=== PATIENT | male | born 1940 | race Caucasian/White ===

== ENCOUNTER → 2017-08-24 10:07 | Outpatient (CLI) | payer MEDICARE, SELFPAY ==
[2017-08-24 11:06] LABS: PSA,Total - Annual Screen 0.94 ng/mL (0.00-4.00)
== END ==
PROVIDERS: Family Provider Family Medicine; PCP Family Medicine; Visit Provider Nurse Practitioner Adult Health
DX: Z12.5 Encounter for screening for malignant neoplasm of prostate (principal); N40.0 Benign prostatic hyperplasia without lower urinary tract symptoms
CPT/HCPCS: 36415; 84153; G0103

== ENCOUNTER → 2017-10-02 09:13 | Outpatient (CLI) | payer MEDICARE, SELFPAY ==
[2017-10-02 12:28] LABS: Cholesterol 174 mg/dL (200); Glucose 113 mg/dL (74-106); High Density Lipoprotein 35 mg/dL; Triglycerides 96 mg/dL; Very Low Density Lipoprotein 19 mg/dL (5-40)
[2017-10-02 12:37] LABS: Hemoglobin A1c 6.9 % (4.2-6.3)
[2017-10-02 17:55] LABS: Microalbumin,Random Urine 8.8 mg/L (NO RANGE EST.); Microalbumin:Creatinine Ratio 5.6 mg/g CRE (<30 mg/g CRE)
== END ==
PROVIDERS: Family Provider Family Medicine; PCP Family Medicine; Visit Provider Family Medicine
DX: E11.9 Type 2 diabetes mellitus without complications (principal); I10 Essential (primary) hypertension
CPT/HCPCS: 36415; 80061; 82043; 82570; 82947; 83036

== ENCOUNTER → 2017-12-17 12:23 | Outpatient (CLI) | payer MEDICARE, SELFPAY | PROVIDERS: Family Provider Family Medicine; PCP Family Medicine; Visit Provider Physician Assistant Surgical | DX: J02.9 Acute pharyngitis, unspecified (principal) | CPT/HCPCS: 87081 ==

== ENCOUNTER → 2018-07-23 11:34 | Outpatient (CLI) | payer MEDICARE, SELFPAY ==
--- NOTE | 2018-07-23 11:38 | US_ITS ---
STUDY: RENAL ULTRASOUND - COMPLETE REASON FOR EXAM: Male, 78 years old. Right flank pain for 2 months TECHNIQUE: Ultrasound evaluation of the kidneys was performed with real-time and static altamirano-scale imaging. COMPARISON: 07/30/2016 FINDINGS: RIGHT KIDNEY: Normal location of the right kidney, which is normal in size. The right kidney measures 12.3 x 4.3 x 6.8 cm. There is a normal cortex of the right kidney. The renal cortex measures 1.3 cm. There is no right renal mass or cyst. Echogenic shadowing focus of the right kidney measures 4 mm, not evident on the prior study. There is no right hydronephrosis. DISTAL RIGHT URETER: There is non-visualization of the distal right ureter. There is no demonstrated right ureterovesical junction calculus. There is a visualized right ureteral jet. LEFT KIDNEY: Normal location of the left kidney, which is normal in size. The left kidney measures 11.5 x 5.5 x 6.6 cm. There is a normal cortex of the left kidney. The renal cortex measures 1.3 cm. There is no left renal mass or cyst. 3.3 mm echogenic focus with inferior shadowing was not previously identified. There is no left hydronephrosis. DISTAL LEFT URETER: There is non-visualization of the distal left ureter. There is no demonstrated left ureterovesical junction calculus. There is a visualized left ureteral jet. BLADDER: The distended urinary bladder has a volume of 220 ml. The empty urinary bladder has a volume of 33 ml. Focal intermediate echogenicity focus along the inferior urinary bladder wall is felt to be from prostatic compression rather than a urinary bladder wall mass. Urinary bladder diverticulum is identified measuring approximately 2.5 cm. There are no demonstrated bladder calculi. US/Kidney and Bladder IMPRESSION: 1. No hydronephrosis or renal mass 2. Mild prostatic impression of the inferior urinary bladder. 3. Small urinary bladder diverticulum. 4. Nonobstructing bilateral renal calculi (3-4 mm). Electronically Signed: Donovan Smart MD at 22:37 EST , Service support ,
== END ==
PROVIDERS: Family Provider Family Medicine; PCP Family Medicine; Referring Provider Family Medicine; Visit Provider Family Medicine
DX: N20.0 Calculus of kidney (principal); R10.31 Right lower quadrant pain
CPT/HCPCS: 76770

== ENCOUNTER → 2018-10-19 10:28 | Outpatient (CLI) | payer MEDICARE, SELFPAY ==
[2018-10-19 12:34] LABS: Absolute Lymphocyte Count 1.61 X10^3/ul (0.83-4.51); Absolute Neutrophil Count 2.9 X10^3/uL (2.0-7.7); Basophil# 0.01 X10^3/uL; Basophil% 0.2 % (0-1); Eosinophil# 0.11 X10^3/uL; Eosinophils% 2.2 % (0-5); Hematocrit 48.1 % (40-54); Hemoglobin 16.4 g/dl (13.0-16.5); Lymphocyte # 1.61 X10^3/ul (4.0); Lymphocyte % 32.2 % (19-41); Mean Corp Hgb Conc 34.1 g/gl (32-36); Mean Corpuscular Hgb 27.9 pg (27.0-32.0); Mean Corpuscular Volume 81.8 fL (80-94); Mean Platelet Vol. 10.6 fl (6.2-12.0); Monocyte# 0.38 X10^3/uL; Monocyte% 7.6 % (0-10); Neutrophil # 2.88 X10^3/uL (2.7-7.7); Neutrophil % 57.6 % (47-70); Platelet Count 208 K/mm3 (150-450); RBC Distribution Width CV 13.7 % (11.6-14.6); Red Blood Count 5.88 M/mm3 (4.6-6.2)
[2018-10-19 12:42] LABS: POSITIVE COUNT NO; POSITIVE DIFFERENTIAL NO; POSITIVE MORPHOLOGY NO
[2018-10-19 13:18] LABS: ALB/GLOB Ratio 1.1 RATIO (0.9-2.4); AST(SGOT) 21 U/L (15-37); Alanine Aminotransfer ALT/SGPT 31 U/L (16-61); Alkaline Phosphatase 63 U/L (45-117); Anion Gap 4 (5-15); BUN 22 mg/dL (7-18); Chloride 108 mmol/L (98-107); EST Glomerular Filtration Rate 77 mL/min (>60); Est Glom Filt Rate - Afr Amer 93 mL/min (>60); Globulin 3.5 g/dL (2.2-4.2); Glucose 115 mg/dL (74-106); Potassium 3.9 mmol/L (3.5-5.1); Protein, Total 7.5 g/dL (6.4-8.2); Sodium Level 139 mmol/L (136-145); T4 Free Direct 0.94 ng/dL (0.76-1.46); Thyroid Stim Hormone (TSH) 1.79 uIU/mL (0.358-3.74)
== END ==
PROVIDERS: Family Provider Family Medicine; PCP Family Medicine; Visit Provider Nurse Practitioner Adult Health
DX: E29.1 Testicular hypofunction (principal); E11.9 Type 2 diabetes mellitus without complications; I10 Essential (primary) hypertension
CPT/HCPCS: 36415; 80053; 84403; 84439; 84443; 85025

== ENCOUNTER → 2018-11-01 06:27 | Outpatient (CLI) | payer MEDICARE, SELFPAY ==
--- NOTE | 2018-11-01 06:31 | CT_ITS ---
STUDY: CT ABDOMEN AND PELVIS WITH CONTRAST REASON FOR EXAM: Male, 78 years old. Right-sided abdominal pain, right lower quadrant and back times several months. History of hypertension. RADIATION DOSAGE (If Supplied By Facility): CTDIvol = ( 12.49 ) mGy, DLP = ( 1249.05 ) mGycm TECHNIQUE: Transaxial 3.75 mm images were obtained from the dome of the diaphragm to the symphysis pubis with oral contrast. 100mL IV/Oral Isovue 300 was administered. Sagittal and coronal images were reconstructed. Individualized dose optimization techniques were used for this CT. COMPARISON: Renal ultrasound 07/23/2018. 07/30/2016. FINDINGS: Compression of dependent parenchyma. Right greater than left lower lobe alveolar hyperattenuation consistent with previous contrast aspiration, there are platelike atelectatic changes and possible scarring in the left lower lobe and lingula. There is coronary artery calcification. Normal liver. There are multiple large gallstones without gallbladder wall thickening. There is nondilated intra and extrahepatic biliary ductal system. Normal spleen. Normal pancreas. Normal bilateral adrenal glands. Bilateral perirenal stranding and cortical thinning. Punctate nonobstructing right upper renal pole calculi. There are numerous nonobstructing left renal calculi, in the upper pole measuring 0.6 and 0.2 cm, and the mid kidney 0.4 and 0.2 cm. Normal visualized stomach. Normal small intestine. Moderate amount of retained fecal material. There are multiple scattered colonic diverticula consistent with diverticulosis, moderate amount of diverticula in the descending and sigmoid colon. No pericolonic fat inflammation detected.. The appendix is visualized and appears normal. There is diffuse atherosclerotic calcification of the abdominal aorta and pelvic arteries, without a demonstrated aneurysm. Normal inferior vena cava. Normal retroperitoneum. Normal urinary bladder. Central defect within the prostate likely previous in the surgical intervention. There is a left-sided and umbilical inguinal hernia containing adipose tissue. There are diffuse degenerative changes of the visualized spine, bilateral hip and sacroiliac joints, lower lumbar facet joints. CT/Abdomen/Pelvis WITH Contrast IMPRESSION: Significant colonic diverticulosis most pronounced along the sigmoid and descending colon without active inflammation detected. There is moderate amount of fecal material. Bilateral nonobstructing renal calculi left greater than right. Large numerous gallbladder calculi without inflammation or obstruction. Atherosclerosis, coronary artery disease, degenerative changes, fat-containing umbilical and left inguinal hernia, postsurgical changes of the prostate, aspiration changes in the lung bases with presumed scarring felt to be nonacute findings. Electronically Signed: Surekha Pemberton MD at 7:26 EDT , Service support ,
== END ==
PROVIDERS: Family Provider Family Medicine; PCP Family Medicine; Referring Provider Family Medicine; Visit Provider Family Medicine
DX: R10.31 Right lower quadrant pain (principal)
CPT/HCPCS: 74177; Q9967; A4216

== ENCOUNTER → 2018-11-16 10:01 | Outpatient (CLI) | payer MEDICARE, SELFPAY ==
[2017-12-16 09:29] VITALS: BMI 28.8
== END ==
PROVIDERS: Family Provider Family Medicine; PCP Family Medicine; Referring Provider Urology; Visit Provider Urology
DX: Z12.5 Encounter for screening for malignant neoplasm of prostate (principal)
CPT/HCPCS: 36415; 84153; G0103

== ENCOUNTER → 2019-12-29 14:38 | Outpatient (CLI) | payer MEDICARE, SELFPAY ==
[2019-12-29 15:49] LABS: PSA,Total- Diagnostic 1.15 ng/mL (0.0-4.0)
== END ==
PROVIDERS: PCP Family Medicine; Referring Provider Urology; Visit Provider Urology
DX: E29.1 Testicular hypofunction (principal); N40.1 Benign prostatic hyperplasia with lower urinary tract symptoms
CPT/HCPCS: 36415; 84153; 84403

== ENCOUNTER 2020-08-21 09:24 | Outpatient (RCR) | payer MEDICARE, SELFPAY ==
[2017-12-16 09:29] VITALS: BMI 28.8
[2020-08-21] MEDS: COVID-19 VACC, MRNA(PFIZER)/PF 30 MCG/0.3 ML SYRINGE IM (07:53)
[2020-09-11] MEDS: COVID-19 VACC, MRNA(PFIZER)/PF 30 MCG/0.3 ML SYRINGE IM (07:38)
== END 2020-11-20 23:59 ==
LOC: IMMUN 09:24
PROVIDERS: PCP Family Medicine; Visit Provider Family Medicine
DX: Z23 Encounter for immunization (principal)
CPT/HCPCS: 0001A; 0002A; 91300

== ENCOUNTER → 2021-02-19 09:08 | Outpatient (CLI) | payer MEDICARE, SELFPAY ==
[2021-02-19 10:11] LABS: PSA,Total- Diagnostic 1.08 ng/mL (0.0-4.0)
== END ==
PROVIDERS: PCP Family Medicine; Referring Provider Urology; Visit Provider Urology
DX: N40.1 Benign prostatic hyperplasia with lower urinary tract symptoms (principal)
CPT/HCPCS: 36415; 84153; 84403

== ENCOUNTER → 2021-10-18 | Outpatient (CLI) | payer MEDICARE, SELFPAY ==
[2021-10-23 11:09] LABS: Testosterone, Free 10.61 ng/dL (5.00-21.00)
[2021-10-23 16:52] LABS: Testosterone, % Free 3.61 % (1.50-4.20); Testosterone, Total 294 ng/dL (264-916)
== END | disposition home or self-care (01) ==
LOC: LAB 08:26
PROVIDERS: PCP Family Medicine; Referring Provider Urology; Visit Provider Urology
DX: E29.1 Testicular hypofunction (principal)
CPT/HCPCS: 36415; 84402; 84403

== ENCOUNTER 2021-10-21 09:15 | Emergency (ER) | payer MEDICARE, SELFPAY ==
[2021-10-21 09:15] VITALS: BP 180/97; PULSE 68; RESP 14; TEMP 36.8; O2SAT 99; BMI 27.6
--- NOTE | 2021-10-21 09:36 | EX.ED.DYSGE1 ---
HPI History of Present Illness Chief Complaint: Mental Health Narrative Narrative: Patient presents with feeling anxious, he has not slept more than 1 or 2 hours a night for the past 2 to 3 weeks. He feels shaky, he feels like there is something seriously wrong. He has no headache. He has no neurological symptoms no fevers or chills. This happened a few years ago where he did not sleep for about 15 days and finally saw sleep specialist. He does not know what medications he was placed on. He is denying fevers chills. He has no chest pain or palpitations he has no back pain. He has no abdominal pain. He does not have any delusions or hallucinations, no suicidal ideations. [facility] Medical History (Updated 10/21/21 @ 11:[address] Christopher Pereira MD) Diverticulitis Enlarged prostate Gall stones Low testosterone Sleep apnea Home Medications testosterone 20.25 mg TD DAILY 08/27/16 [History Last Taken Unknown] venlafaxine 0.5 tab PO DAILY 08/27/16 [History Last Taken Unknown] azithromycin 250 mg tablet See Rx Instructions PO .COMPLEX #6 tab 12/16/17 [Rx Last Taken Unknown] ibuprofen 200 mg capsule 200 mg PO TID-QID PRN 12/16/17 [History Last Taken Unknown] hydroxyzine pamoate [Vistaril] 50 mg PO BID #30 cap 10/21/21 [Rx Last Taken Unknown] phenobarbital 100 mg PO BID PRN #10 tab 10/21/21 [Rx Last Taken Unknown] Allergy/AdvReac Type Severity Reaction Status Date / Time fluoxetine [From Prozac] Allergy Unknown Verified 10/21/21 09:18 paroxetine [From Paxil] Allergy Unknown Verified 10/21/21 09:18 alprazolam [From Xanax] AdvReac Other Verified 10/21/21 09:19 ciprofloxacin [From Cipro] AdvReac Unknown Verified 10/21/21 09:18 citalopram AdvReac Unknown Verified 10/21/21 09:18 levofloxacin [From Levaquin] AdvReac Unknown Verified 10/21/21 09:18 Surgical History Hx of transurethral resection of prostate Social History Smoking Status: Never smoker ROS ROS ED ROS Narrative Past medical history: Reviewed, significant for anxiety otherwise he does not take blood pressure cholesterol medications or any other medications other than Effexor and Klonopin Medications: See above Social history: Lives with his he tells me he has no other stressors that he knows of Review of systems: All systems negative except as indicated General: No fever. Shakiness and decreased sleep as in HPI Eyes: No visual changes ENT: No upper airway congestion, normal voice Neck: No neck pain Cardiovascular: No chest pain Respiratory: No shortness of breath or cough Gastrointestinal: No abdominal pain, nausea vomiting or diarrhea Genitourinary: No dysuria Musculoskeletal: Denies myalgias no difficulty with ambulation Skin: No rash Neurological: No memory loss, confusion or any focal weakness Psych: As in HPI Hematologic: No easy bleeding or easy bruising EXAM Physical Exam Narrative Exam Narrative: Physical exam General: Patient does not appear ill. He does appear somewhat uncomfortable. Head: Normocephalic, Atraumatic Eyes: Conjunctiva not pale ENT: Moist mucous membranes Neck: Supple, Nontender, No lymphadenopathy Cardiovascular: Regular rate, Regular rhythm Respiratory: No distress, CTA bilaterally Abdomen: Soft, Nontender, Nondistended Back: Nontender, Normal Inspection. Negative for: CVA tenderness Extremities: Nontender, No edema Skin: Normal color, No rash Neurological: Normal Strength, Normal Sensation. He is lucid and coherent, alert and oriented. Psychological: Somewhat anxious, he does have a stutter, otherwise he is lucid coherent and answers questions appropriately Const Vital Signs: 10/21/21 09:15 10/21/21 10:29 Temperature 98.3 F Temperature Source Temporal Pulse Rate 68 Respiratory Rate 14 18 Blood Pressure 180/97 H Blood Pressure Mean 124 Pulse Ox 99 Oxygen Delivery Method Room Air MDM MDM MDM Narrative Medical decision making narrative: Patient was given Vistaril and phenobarbital. When checked by a nurse he was sleeping. I had a long discussion with the patient and the . I believe it is reasonable to discharge home and try outpatient treatment. I am willing to write him a few days of phenobarbital for sleep. He has tried trazodone he has tried benzos and they do not seem to be working. Otherwise fainting changes she is to return. Lab Data Labs: Laboratory Results - last 24 hr 10/21/21 10/21/21 09:45 09:45 WBC 7.0 RBC 5.59 Hgb 16.1 Hct 48.1 MCV 86.0 MCH 28.8 MCHC 33.5 RDW Std Deviation 39.7 RDW Coeff of Oly 12.7 Plt Count 215 MPV 9.9 Immature Gran % (Auto) 0.300 Neut % (Auto) 70.1 H Lymph % (Auto) 19.3 [place] % (Auto) 9.0 Eos % (Auto) 1.0 Baso % (Auto) 0.3 Absolute Neuts (auto) 4.9 Absolute Lymphs (auto) 1.35 Nucleated RBC % 0 Sodium 137 Potassium 4.0 Chloride 104 Carbon Dioxide 32.0 Anion Gap 1 L BUN 19 H Creatinine 1.11 Estim Creat Clear Calc 60.98 Est GFR (MDRD) Af Amer 82 Est GFR (MDRD) Non-Af 68 BUN/Creatinine Ratio 17.1 Glucose 154 H Calcium 9.0 Total Bilirubin 1.70 H AST 17 ALT 38 Alkaline Phosphatase 55 Total Protein 7.2 Albumin 3.5 Globulin 3.7 Albumin/Globulin Ratio 0.9 TSH 1.72 Discharge Plan Triage Chief Complaint: Mental Health ED Provider: Christopher Pereira Dx/Rx/DC Orders Clinical Impression: Acute insomnia, Anxiety Instructions: ED Insomnia Prescriptions: New phenobarbital 100 mg tablet 100 mg PO BID PRN (Reason: sleep) Qty: 10 RF: 0 hydroxyzine pamoate [Vistaril] 50 mg capsule 50 mg PO BID Qty: 30 RF: 0 No Action ibuprofen 200 mg capsule 200 mg PO TID-QID PRNRF: 0 azithromycin 250 mg tablet See Rx Instructions PO .COMPLEX Qty: 6 RF: 0 venlafaxine 37.5 MG tablet 0.5 tab PO DAILY RF: 0 testosterone 2.5 GM gel in packet 20.25 mg TD DAILY RF: 0 Primary Care Provider: Denver Baker Referrals: Denver Baker MD [Primary Care Provider] - 2 Days Disposition Disposition: Home, Self Care
[2021-10-21] MEDS: Phenobarbital 32.4 MG Tablet 97.2 MG PO (09:55)
[2021-10-21] MEDS: hydrOXYzine 50 MG/ML Vial IM (09:55)
[2021-10-21 09:58] LABS: Absolute Lymphocyte Count 1.35 X10^3/uL (0.83-4.51); Absolute Neutrophil Count 4.9 X10^3/uL (2.0-7.7); Basophil# 0.02 X10^3/uL; Basophil% 0.3 % (0-1); Eosinophil# 0.07 X10^3/uL; Hematocrit 48.1 % (40-54); Hemoglobin 16.1 g/dL (13.0-16.5); Lymphocyte # 1.35 X10^3/ul (0.83-4.51); Lymphocyte % 19.3 % (19-41); Mean Corp Hgb Conc 33.5 g/dL (32-36); Mean Corpuscular Hgb 28.8 pg (27.0-32.0); Mean Platelet Vol. 9.9 fl (6.2-12.0); Monocyte# 0.63 X10^3/uL; NRBC Flagged by Analyzer 0 % (0-5); Neutrophil # 4.92 X10^3/uL (2.7-7.7); Neutrophil % 70.1 % (47-70); Platelet Count 215 K/mm3 (150-450); RBC Distribution Width CV 12.7 % (11.6-14.6); RBC Distribution Width SD 39.7 fl (35.1-43.9); Red Blood Count 5.59 M/mm3 (4.6-6.2)
[2021-10-21 10:21] LABS: ALB/GLOB Ratio 0.9 RATIO (0.9-2.4); AST(SGOT) 17 U/L (15-37); Alanine Aminotransfer ALT/SGPT 38 U/L (16-61); Albumin, Serum 3.5 g/dL (3.2-5.0); Alkaline Phosphatase 55 U/L (45-117); Anion Gap 1 (5-15); BUN 19 mg/dL (7-18); BUN/Creat Ratio 17.1 RATIO (10-20); Chloride 104 mmol/L (98-107); Creatinine, Serum 1.11 mg/dL (0.70-1.30); EST Glomerular Filtration Rate 68 mL/min (>60); Est Glom Filt Rate - Afr Amer 82 mL/min (>60); Estimated Creatinine Clearance 60.98 ml/min; Globulin 3.7 g/dL (2.2-4.2); Glucose 154 mg/dL (74-106); Protein, Total 7.2 g/dL (6.4-8.2); Sodium Level 137 mmol/L (136-145); Thyroid Stim Hormone (TSH) 1.72 uIU/mL (0.358-3.74)
[2021-10-21 10:29] VITALS: RESP 18
--- NOTE | 2021-10-21 11:09 | CM.ED ---
SW Note SW noted that on admission to the ED it was noted to be Mental Health. SW spoke to MD Aguirre who indicated that patient's presenting issue was a result of lack of sleep and patient had been presented medication and had been sleeping in the ED. Per MD no social work consult needed. Plan: Home Daisy BARRAZA
== END 2021-10-21 11:07 | disposition home or self-care (01) ==
PROVIDERS: Emergency Provider Emergency Medicine; PCP Family Medicine; Visit Provider Emergency Medicine
DX: G47.00 Insomnia, unspecified (principal); F41.9 Anxiety disorder, unspecified; G47.30 Sleep apnea, unspecified
CPT/HCPCS: 80053; 84443; 85025; 96372; 99284; A4216

== ENCOUNTER 2021-10-30 09:32 | Observation (INO) | payer MEDICARE, SELFPAY ==
[2021-10-30 10:30] VITALS: BP 162/79; PULSE 86; RESP 18; TEMP 36.8; O2SAT 97; BMI 27.5
--- NOTE | 2021-10-30 12:49 | ED.RN ---
Patient's shouting at Dr. Garcia in [facility]. She is frustrated with the pace the care of her is moving. Dr. Garcia informed the and patient that there is only one oncology social worker for the entire hospital today and they are working as fast as they can. Patient's states they will wait one more hour before they leave for [facility]. Dr. Garcia encouraged them to stay and apologized for the time it is taking stating that he wants to do what is best for the patient.
--- NOTE | 2021-10-30 12:55 | EDS_ITS ---
HPI History of Present Illness Chief Complaint: Confusion Detail of Chief Complaint: Anxiety unable to sleep. Informant: patient and spouse/S.O. Onset/Context/Timing Onset: Weeks Context: Gradual Onset Timing: Continuous Current Severity: Moderate Maximum Severity: Moderate Narrative Narrative: 81-year-old male history of anxiety. He and his are quite frustrated because are trying to have this result through his primary care physician's office and has had difficulty getting appointments and making contact with his primary care physician. If he has had insomnia for a month. He has been very anxious. He does not sleep. And she wants help. The does not drive outside the local area and wants him admitted to the hospital to see if he could be put in the transitional care unit. I discussed with her a possible geriatric psychiatric transfer and admission but she is totally against that idea. She feels that they will overmedicate him and she would not be able to go visit him. Prior similar symptoms: Yes Recent Illness/Hospitalization: No PFSH PFSH Medical History Diverticulitis Enlarged prostate Gall stones Low testosterone Sleep apnea Home Medications testosterone 20.25 mg TD DAILY 08/27/16 [History Last Taken Unknown] venlafaxine 0.5 tab PO DAILY 08/27/16 [History Last Taken Unknown] azithromycin 250 mg tablet See Rx Instructions PO .COMPLEX #6 tab 12/16/17 [Rx Last Taken Unknown] ibuprofen 200 mg capsule 200 mg PO TID-QID PRN 12/16/17 [History Last Taken Unknown] hydroxyzine pamoate [Vistaril] 50 mg PO BID #30 cap 10/21/21 [Rx Last Taken Unknown] phenobarbital 100 mg PO BID PRN #10 tab 10/21/21 [Rx Last Taken Unknown] Allergy/AdvReac Type Severity Reaction Status Date / Time fluoxetine [From Prozac] Allergy Unknown Verified 10/21/21 09:18 paroxetine [From Paxil] Allergy Unknown Verified 10/21/21 09:18 alprazolam [From Xanax] AdvReac Other Verified 10/21/21 09:19 ciprofloxacin [From Cipro] AdvReac Unknown Verified 10/21/21 09:18 citalopram AdvReac Unknown Verified 10/21/21 09:18 levofloxacin [From Levaquin] AdvReac Unknown Verified 10/21/21 09:18 Surgical History Hx of transurethral resection of prostate Social History Smoking Status: Never smoker ROS ROS ED ROS Narrative Denies recent illness. Review of Systems ROS Unobtainable: Denies due to encephalopathy Constitutional Constitutional ED: Denies fever(s) Eyes Eyes: Denies change in vision ENT ENT ED: Denies ear pain Cardiovascular Cardiovascular: Denies chest pain Respiratory/Chest Respiratory/Chest: Denies dyspnea Gastrointestinal Gastrointestinal: Denies abdominal pain Genitourinary Genitourinary ED: Denies dysuria Musculoskeletal Musculoskeletal: Denies myalgias Integumentary Denies rash Neurologic Neurologic: Denies headache(s) Psychiatric Psychiatric: Denies depression Endocrine Endocrinology: Denies polyuria Allergic/Immunologic Allergic/Immunologic ED: Denies urticaria EXAM Physical Exam Narrative Exam Narrative: 81-year-old male no acute distress vital signs stable afebrile. present in the room. H EENT exam unremarkable. Neck nontender. Lungs are clear. Heart regular rhythm no murmur. Abdomen soft nontender. Moving all 4 extremities. He is able to get up and ambulate. Neurologically is awake and alert. He does stutter but that is his baseline speech. Const Vital Signs: 10/30/21 10:30 Temperature 98.3 F Temperature Source Oral Pulse Rate 86 Respiratory Rate 18 Blood Pressure 162/79 H Blood Pressure Mean 106 Pulse Ox 97 Oxygen Delivery Method Room Air Positive well nourished and well developed; Negative for obese, cachectic, contractures or unkempt General Appearance ED: well developed and NAD; Negative for unkempt, cachectic, contractures, cyanotic, diaphoretic or pallor Nutritional Appearance: Negative for cachectic or obese HEENT Reports moist mucous membranes tenderness; Negative for trauma Eyes PERRL and EOMs intact bilaterally General Eye ED: Negative for pale conjunctiva or scleral icterus Neck no lymphadenopathy, supple and no JVD General: Negative for tenderness Chest Wall inspection of chest normal and palpation of chest normal Resp normal respiratory effort and clear to auscultation bilaterally Effort and Inspection: Negative for pain with movement Auscultation: Negative for rales or rhonchi Cardio regular rate, regular rhythm, S1 normal heart sound, S2 normal heart sound and no murmurs Rate: Negative for bradycardia GI normal to inspection, nondistended, normoactive bowel sounds, non-tender, non- distended and no masses Auscultation: normoactive bowel sounds Palpation: soft; Negative for tender, guarding or rebound tenderness present Back/Spine no CVA tenderness General Back: Negative for CVA tenderness Cervical Spine: Negative for cervical spine tenderness Thoracic Spine / Upper Back: Negative for thoracic spinal tenderness Lumbar Spine / Lower Back: Negative for lumbar spinal tenderness Extremity normal to inspection General Extremety ED: Negative for edema or tenderness General Extremity: Negative for edema Neuro oriented x3 Sensorium / Orientation: alert; Negative for orientation impaired, lethargic or stuporous Motor Exam: strength 5/5 throughout Psych mental status grossly normal Appearance: Negative for unkempt Mood & Affect: Negative for depressed or tearful Skin no rashes or lesions noted and no wounds General Skin Exam: Negative for jaundice or pallor MDM MDM MDM Narrative Medical decision making narrative: Patient with anxiety and failure to thrive and insomnia. I have already spoken to our social service technician twice she will come down to evaluate the patient to see what outpatient options are with edema she is just tired and very busy today because she is only social service technician in the hospital. I explained to the family. I also spoke to the hospitalist they are willing to admit this gentleman to help formulate a plan to help he and his . Patient had labs done about a week or so ago those were unremarkable. I do not think he needs any further labs at this time. Discharge Plan Triage Chief Complaint: Confusion ED Provider: Uli Garcia Dx/Rx/DC Orders Clinical Impression: Adult failure to thrive, Anxiety, Insomnia Prescriptions: No Action ibuprofen 200 mg capsule 200 mg PO TID-QID PRNRF: 0 azithromycin 250 mg tablet See Rx Instructions PO .COMPLEX Qty: 6 RF: 0 venlafaxine 37.5 MG tablet 0.5 tab PO DAILY RF: 0 testosterone 2.5 GM gel in packet 20.25 mg TD DAILY RF: 0 phenobarbital 100 mg tablet 100 mg PO BID PRN (Reason: sleep) Qty: 10 RF: 0 hydroxyzine pamoate [Vistaril] 50 mg capsule 50 mg PO BID Qty: 30 RF: 0 Primary Care Provider: Denver Baker Referrals: Denver Baker MD [Primary Care Provider] - Disposition Disposition: Acute Care Hospital [facility]
[2021-10-30 13:11] VITALS: BP 178/93; PULSE 58; RESP 16; TEMP 36.4; O2SAT 98
--- NOTE | 2021-10-30 13:12 | HP.PCM.HOS_ITS ---
HPI - General General Date of Admission: 10/30/21 Date of Service: 10/30/21 Chief Complaint: Acute insomnia HPI Narrative SO GONZALEZ, is a 81 M who presents with acute insomnia. Patient symptoms have been ongoing for the past couple of weeks. Patient had apparently been seen in the emergency department 10 days ago was discharged home on Vistaril and phenobarb. Patient states the above medications apparently did not work. He had apparently been tried on benzodiazepines in the past without much effect. He also complains of feeling very anxious. Was seen and evaluated in the ED decision was made to admit patient for possible transfer to a retirement facility was medications are being adjusted [facility] Medical History Diverticulitis Enlarged prostate Gall stones Low testosterone Sleep apnea Home Medications testosterone 20.25 mg TD DAILY 08/27/16 [History Last Taken Unknown] venlafaxine 0.5 tab PO DAILY 08/27/16 [History Last Taken Unknown] azithromycin 250 mg tablet See Rx Instructions PO .COMPLEX #6 tab 12/16/17 [Rx Last Taken Unknown] ibuprofen 200 mg capsule 200 mg PO TID-QID PRN 12/16/17 [History Last Taken Unknown] hydroxyzine pamoate [Vistaril] 50 mg PO BID #30 cap 10/21/21 [Rx Last Taken Unknown] phenobarbital 100 mg PO BID PRN #10 tab 10/21/21 [Rx Last Taken Unknown] Allergy/AdvReac Type Severity Reaction Status Date / Time fluoxetine [From Prozac] Allergy Unknown Verified 10/21/21 09:18 paroxetine [From Paxil] Allergy Unknown Verified 10/21/21 09:18 alprazolam [From Xanax] AdvReac Other Verified 10/21/21 09:19 ciprofloxacin [From Cipro] AdvReac Unknown Verified 10/21/21 09:18 citalopram AdvReac Unknown Verified 10/21/21 09:18 levofloxacin [From Levaquin] AdvReac Unknown Verified 10/21/21 09:18 Surgical History Hx of transurethral resection of prostate Social History Smoking Status: Never smoker ROS ROS Narrative GENERAL: denies fever, chills, night sweats, HEENT: denies headache, sinus congestion, RESPIRATORY: denies cough, sputum production, CARDIAC: denies chest pain, palpitations, orthopnea, GASTROINTESTINAL: denies abdominal pain, nausea, GENITOURINARY: denies dysuria, urgency, frequency, EXTREMITY: denies swelling MUSCULOSKELETAL: denies current joint pain or tenderness NEUROLOGIC: denies focal numbness, weakness, tingling HEMATOLOGIC: denies easy bruising and/or hemorrhage INTEGUMENT: denies rashes PSYCHIATRIC: anxious Vital Signs Vital Signs Vital Signs: 10/30/21 10:30 Temperature 98.3 F Temperature Source Oral Pulse Rate 86 Respiratory Rate 18 Blood Pressure 162/79 H Blood Pressure Mean 106 Pulse Ox 97 Oxygen Delivery Method Room Air Weight Weight: 97.2 kg Body Mass Index (BMI) 27.5 Physical Exam Narrative GENERAL: cooperative HEENT: Atraumatic; EYES; Anicteric, Normal Conjunctiva NECK; supple, normal thyroid, RESPIRATORY: Diminished to auscultation CARDIOVASCULAR: Regular S1 S2, GI: soft, normoactive bowel sounds, : No Renal angle tenderness; EXTREMITIES: No edema, no clubbing, MUSCULOSKELETAL: no muscle wasting NEURO: Awake; no lateralizing signs. SKIN: No Rash PSYCH; Flat affect Results Lab / Micro Data Result Diagrams: 10/30/21 13:15 10/30/21 13:15 Assessment & Plan Assessment/Plan (1) Insomnia: (2) Adult failure to thrive: (3) Anxiety: PLAN: Patient is a 81-year-old gentleman admitted with insomnia and gene ralized anxiety 1. Insomnia ? Patient was recently prescribed amitriptyline and hydroxyzine to help with his acute insomnia however appears not to have had any effect. Added temazepam. Also requested for CBC BMP TSH to rule out any metabolic etiology 2. BPH ? With history of TURP in August 2016 3. Depression with anxiety disorder ? Patient is on SNRI discontinued 4. DVT prophylaxis ? SC Lovenox Advance planning; did discuss with the patient and patient's regarding advanced directives as well as CODE STATUS. Did explain the various scenarios involved ( FULL CODE, DNR CCA, DNR CCA with no intubation, and DNR CC and what each meant) patient and family elected for patient to remain full code with CPR and intubation if needed. Order was placed. Time spent on discussion 18 mi nutes. Charges/Coding Visit Charges OBSV E&M: 84203 Initial observation care L2 Procedures Hospitalists Procedures: 91601 Advncd Care Plan 30 Min
[2021-10-30 13:18] LABS: Absolute Lymphocyte Count 1.18 X10^3/uL (0.83-4.51); Absolute Neutrophil Count 5.7 X10^3/uL (2.0-7.7); Basophil# 0.01 X10^3/uL; Basophil% 0.1 % (0-1); Eosinophil# 0.04 X10^3/uL; Eosinophils% 0.5 % (0-5); Hematocrit 49.8 % (40-54); Hemoglobin 16.6 g/dL (13.0-16.5); Lymphocyte # 1.18 X10^3/ul (0.83-4.51); Lymphocyte % 15.8 % (19-41); Mean Corp Hgb Conc 33.3 g/dL (32-36); Mean Corpuscular Hgb 28.8 pg (27.0-32.0); Mean Corpuscular Volume 86.3 fL (80-94); Mean Platelet Vol. 9.8 fl (6.2-12.0); Monocyte# 0.48 X10^3/uL; Monocyte% 6.4 % (0-10); NRBC Flagged by Analyzer 0 % (0-5); Neutrophil # 5.72 X10^3/uL (2.7-7.7); Neutrophil % 76.8 % (47-70); Platelet Count 214 K/mm3 (150-450); RBC Distribution Width CV 12.9 % (11.6-14.6); RBC Distribution Width SD 39.9 fl (35.1-43.9); Red Blood Count 5.77 M/mm3 (4.6-6.2); White Blood Count 7.5 K/mm3 (4.4-11.0)
[2021-10-30 13:42] LABS: AST(SGOT) 23 U/L (15-37); Alanine Aminotransfer ALT/SGPT 57 U/L (16-61); Albumin, Serum 3.7 g/dL (3.2-5.0); Alkaline Phosphatase 59 U/L (45-117); Anion Gap 4 (5-15); BUN 19 mg/dL (7-18); BUN/Creat Ratio 17.4 RATIO (10-20); Calcium,Total 9.4 mg/dL (8.5-10.1); Chloride 101 mmol/L (98-107); Creatinine, Serum 1.09 mg/dL (0.70-1.30); EST Glomerular Filtration Rate 69 mL/min (>60); Est Glom Filt Rate - Afr Amer 84 mL/min (>60); Estimated Creatinine Clearance 63.89 ml/min; Globulin 3.7 g/dL (2.2-4.2); Glucose 178 mg/dL (74-106); Magnesium 2.4 mg/dL (1.6-2.6); Potassium 4.3 mmol/L (3.5-5.1); Protein, Total 7.4 g/dL (6.4-8.2); Sodium Level 137 mmol/L (136-145); Thyroid Stim Hormone (TSH) 0.99 uIU/mL (0.358-3.74)
--- NOTE | 2021-10-30 14:45 | CM.ED ---
Social Work Psychiatric Assessment Reason for consult: Insomnia and anxiety, evaluate for additional supportive services. Referral source: Dr. Garcia, emergency department physician Informant(s): Medical records, patient himself, and patient's Sophia Karimi. Chief Complaint: Patient reports almost a 1 month episode of insomnia, presenting to the hospital on 10/21/2021 with these complaints, and at that time reported not sleeping more than 1 or 2 hours a night for 2 to 3 weeks prior. Patient reports the insomnia has continued since 10/21/2021, describing no sleep, or just for very short periods. Reports the longest duration of sleep in the last 2 weeks has been 1 time for 5 hours, so all other sleep has been less than 5 hours. Patient reports he will lay in bed at night with his eyes closed, with mind racing and unable to relax enough to fall asleep. Describes it being difficult to shut his thought process down, with having thoughts jumping from topic to topic and difficulty concentrating. Patient reports decision to come to the emergency department today, 10/30/2021 was made on the belief that I was at the end of my rope, and concerned that something terribly wrong is going to happen. Patient reports fearful of significant physical issues or even should patient not be able to get his sleep back on track. 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 Patient reports inability to hear negative talk, as this is overwhelming and too overstimulating. reports the patient actually will stop the from talking if the content is too negative. Patient describes some irritability, decrease of motivation, 8 pound weight loss in the last month, increased sadness, depression, and worry. Patient does not feel rested. Patient feels that current emotional state is affecting everything I do. Patient reports his verbal stutter has also intensified due to being so tired. Marital Status/History: Patient has been to his Sophia for 44 years. There are no children, but patient reportedly has many nieces and nephews who live in the area. Identified Gender: Male Sexual Orientation: Not discussed. Living Situation: Lives with . Patient uses a CPAP machine at home through a company called [employer]. Reports typically independent with self-care and transportation. Support/Resources: . Hoahaoism. History: No history. Education and Employment History: Patient is a high school graduate. Denies any issues with reading, writing, or learning comprehension. Sophia describes the patient is highly intelligent. Sophia reports the patient is always seeking to learn, and enjoys reading instruction manuals to learn new things. 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 Mental Health Treatment/History: Patient denies any history of inpatient psychiatric hospitalization. Denies any history of outpatient counseling for emotional health issues, reporting the only type of therapists the patient is ever had was for speech. Primary care physician has been treating the patient with psychiatric medications for at least the last 5 years. reports the patient had an episode of 15 days without sleep about 20 years ago, which resulted in a sleep study being diagnosed with sleep apnea. From records reviewed this copywriter noted emergency department visits for anxiety issues on 02/27/2013, 10/21/2021, and 10/30/2021. From emergency department record in 2012 it is indicated that patient may have had a episode of in insomnia and anxiety also in 2011. All emergency department visits identified surrounded insomnia leading to anxiety, which led to more insomnia. Denies any history of bipolar diagnosis, nor any family history of such. Describes his parents as anxious people. Medication History: Dennise has been on various psychiatric medications for depression and anxiety. Effexor -dennise has been prescribed this for the last 5 years. Patient reports no significant side effects from this medication until recent increase in dosage done at the onset of this episode of insomnia. Patient describes the Effexor is now making the patient sweaty and nervous for 2 to 3 hours after taking it. Patient reports he cut his dosage in half again and still having side effects. Phenobarbital and Vistaril -dennise was prescribed this from the emergency department on 10/21/2021, to take in addition to the Effexor. Dennise had to stop the Vistaril due to depression side effects being overwhelming. Reports believe the phenobarbital is not helping with sleep. Psychiatric medication allergies and/or adverse reactions-Prozac, Paxil, Xanax, and citalopram. Triggers/Stressors: Patient is unable to identify any current or recent stressors or triggers to current episode of insomnia. Insomnia is triggering mood and anxiety issues for this patient. 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 History of Abuse: No history of trauma reported. Substance Abuse Hx: Patient denies any history of substance abuse or misuse. Does not drink alcohol. Does not smoke tobacco. And denies any illicit drug use history. Patient's states it is against the mandaen to use substances. Risk to Self/Others: Suicidal: Patient denies any history or current concerns regarding suicidal ideation, thoughts, planning, intent, or attempt. Homicidal: Patient denies any history or current concerns regarding homicidal ideation, thoughts, planning, intent, or attempt. Violence: No reported history of violence. Mental Status Exam: Orientation: Patient is alert and oriented to all spheres. Memory: Intact with good recall. Appearance/underlying: Appropriately groomed, in hospital gown. Mood/Affect: Patient describes mood as bad and tired. Admits to anxiety and depression. Affect constricted. Communication Pattern: Response to questions, spontaneous at normal rate and rhythm. Thought Process: Appropriate though preoccupied, specifically with potential adverse outcomes to his life if insomnia continues. Denies any type of hallucinations or paranoia, just concerned about inability to sleep. General Intellectual Functioning: Average. Judgment: Fair Insight: Fair to poor PHQ9: 16 (severe range of depression) KALEE-7: 12 (moderately severe range of anxiety) Patient reports problems identified have made it somewhat difficult to take care of work and things at home. Patient handwrote on the screening tools: This is not like me, normally I am very optimistic and in control., I have almost always been a little too optimistic. Assessment: Met with the patient and together, with the patient's permission. Both contributed to assessment, though patient provided the majority of the information and the was respectful and allowing the patient time to communicate. Patient took much time to answer questions due to significant focal stutter present. Patient and both polite and cooperative with this copywriter. The acknowledged verbally blowing up at the emergency department physician earlier today. The voiced frustration and worry about the patient, and feeling that patient would not be getting any help. The patient expressed much concern that something is physically wrong and nobody is listening. Patient reports he has been unable to have a [id number] appointment with his primary care physician the last emergency department visit approximately 10 days ago, but has been communicating via email with the doctor. Patient reports the primary care physician ruled out the need for an additional sleep study and also reportedly told the patient that does not know what else to do for the patient. This copywriter provided much supportive listening and reflection, acknowledging how difficult it may be to go for such a long period of time without sleep. Psychoeducation about how physical symptoms can increase emotional health concerns, and that emotional health concerns can sometimes manifest in physical ways. Explored options for this patient including intensive outpatient programming and inpatient [facility] hospitalization for a medication evaluation and adjustment by psychiatry, especially in light of perceived side effects from the medication the patient has been on for 5 years. Patient is endorsing multiple symptoms of depression anxiety, with appearing impact on usual functioning level. Allowed patient and opportunity to ask questions and express concerns about potential inpatient hospitalization. Educated that this copywriter did look into [facility]'s behavioral health program, but there is a wait list until the end of October or beginning of November. Patient expressed outpatient services is more desirable, but wants to get help fast. This copywriter discussed plan to talk with emergency room physician while the patient completed the PHQ-9 and KALEE-7 (as this copywriter wanted to help patient be able to see in writing symptoms he is experiencing and use this is a talking point on severity of symptoms.). This copywriter was able to speak to emergency department physician, clarifying with physician that nothing is currently indicated in the medical record regarding potential for underlying physical component to this insomnia. Discussed [facility] admission, which the ED physician was in agreement with if the patient would be agreeable. Steps have been taken for patient to be admitted to the medical floor for observation regarding the insomnia. This copywriter met with the patient and again, verbally reviewed the depression and anxiety screens. Patient pointed out that many of the depressive symptoms identified were because of insomnia, and this copywriter was able to facilitate conversation about additional symptoms identified and that this solidifies that patient would benefit from extra support. Patient agreed. Reviewed care options. Patient aware of being admitted to the general medical floor overnight. Patient and both expressed agreement with social work making a referral to a [facility] services. Reviewed area facilities, and reports [facility] would be the easiest for the to get to if needed. did express concern that patient could be overmedicated at an inpatient unit. Acknowledged concerns, while also educating that the goal is always least restrictive amount of medications to meet the needs of a person. Plan: Patient to be admitted observation status to the general medical floor, and referral to [facility] services. -CHRISTI Sargent, PRADEEP *This note was generated with [employer] dictation software. It may contain incorrect words, spelling, and punctuation that were not noted in review of the chart prior to signing*
[2021-10-30 15:16] VITALS: BMI 26.6
[2021-10-30 15:18] VITALS: BP 162/82; PULSE 66; RESP 16; TEMP 36.7; O2SAT 98
--- NOTE | 2021-10-30 18:01 | CASEMGMT ---
Social Work Progressive Care Unit Collaboration and handoff to PCU social worker clinical Radha. Chart reviewed and noted in physician report plan to get additional lab work to rule out metabolic etiology. Called Porfirio Martinez at [phone] for inpatient [facility] consideration. Per Radha there are bed availability, but staff who review referrals are gone for the day and would be in after 7 AM on 10/31/2021. Confirmed fax number as [phone]. Refer to emergency department social work note for further details about patient's presentation to the hospital and social work intervention. Updated Dr. Marte. Plan: Due to notation in record for additional lab work being drawn, and due to no staff available to review referral until tomorrow morning, social work will continue working on placement for this patient on 10/31/2021. Per this race and sports book writer's conversation with both patient and in the emergency department, both were agreeable to such referral being made. -AMARIS Sargent, INVASIVE CARDIOLOGIST *This note was generated with [employer] dictation software. It may contain incorrect words, spelling, and punctuation that were not noted in review of the chart prior to signing*
[2021-10-30 21:18] VITALS: BP 156/80; PULSE 60; RESP 18; TEMP 37.2; O2SAT 97
[2021-10-30] MEDS: clonazePAM 1 MG Tablet PO (21:30)
[2021-10-30] MEDS: MELATONIN 3 MG TABLET 6 MG PO (21:30)
[2021-10-31 03:37] VITALS: BP 159/83; PULSE 52; RESP 18; TEMP 36.4; O2SAT 98
[2021-10-31 09:11] VITALS: BP 150/66; PULSE 61; RESP 18; TEMP 36.3; O2SAT 98
[2021-10-31] MEDS: clonazePAM 1 MG Tablet PO (09:14)
--- NOTE | 2021-10-31 10:35 | EKG12_ITS ---
Test Reason : Blood Pressure : / mmHG Vent. Rate : 063 BPM Atrial Rate : 063 BPM P-R Int : 150 ms QRS Dur : 090 ms QT Int : 346 ms P-R-T Axes : 055 037 090 degrees QTc Int : 354 ms Normal sinus rhythm Nonspecific T wave abnormality Abnormal ECG When compared with ECG of 27-AUG-2016 15:03, Nonspecific T wave abnormality, worse in Anterior leads Confirmed by DARIUS BHANDARI, SHANNAN ([id number]), sports editor CANELO GALDAMEZ ([id number]) on 11/04/2021 10:12:35 A M Referred By: WANG Confirmed By:ANKIT MCCOY MD
--- NOTE | 2021-10-31 10:45 | CM.ED ---
Social Work Note SW faxed referral to [facility]. SW updated pt and pt's on referral being sent to [facility]. Pt and pt's states understanding. Plan: [facility] pending acceptance Josefina Zavala STORE HOST, WIND PROJECTS SUPERVISOR
--- NOTE | 2021-10-31 11:17 | PN.HOSP_ITS ---
Subjective Subjective Patient is a 81-year-old gentleman admitted with generalized anxiety and insomnia. His medications were adjusted admitted to monitored bed for subsequent management. Patient blood pressure remains uncontrolled Objective Data Objective Data Vital Signs: Vital Signs Temp Pulse Resp BP Pulse Ox 97.3 F L 61 18 150/66 H 98 10/31/21 09:11 10/31/21 09:11 10/31/21 09:11 10/31/21 09:11 10/31/21 09:11 Oxygen Delivery Method Room Air Weight: 94.03 kg Body Mass Index (BMI) 26.6 Intake & Output: Intake and Output for Last 24 Hours 10/29/21 10/30/21 10/31/21 23:59 23:59 23:59 Intake Total 340 / 340 Balance 340 / 340 Lab / Micro Data Result Diagrams: 10/30/21 13:15 10/30/21 13:15 Labs: Laboratory Results - last 24 hr 10/30/21 13:15: WBC 7.5, RBC 5.77, Hgb 16.6 H, Hct 49.8, MCV 86.3, MCH 28.8, MCH C 33.3, RDW Std Deviation 39.9, RDW Coeff of Oly 12.9, Plt Count 214, MPV 9.8, Immature Gran % (Auto) 0.400, Neut % (Auto) 76.8 H, Lymph % (Auto) 15.8 L, [place] % (Auto) 6.4, Eos % (Auto) 0.5, Baso % (Auto) 0.1, Absolute Neuts (auto) 5.7, Absolute Lymphs (auto) 1.18, Nucleated RBC % 0 10/30/21 13:15: Sodium 137, Potassium 4.3, Chloride 101, Carbon Dioxide 32.0, Anion Gap 4 L, BUN 19 H, Creatinine 1.09, Estim Creat Clear Calc 63.89, Est GFR (MDRD) Af Amer 84, Est GFR (MDRD) Non-Af 69, BUN/Creatinine Ratio 17.4, Glucose 178 H, Calcium 9.4, Magnesium 2.4, Total Bilirubin 0.90, AST 23, ALT 57, Alkaline Phosphatase 59, Total Protein 7.4, Albumin 3.7, Globulin 3.7, Albumin/Globulin Ratio 1.0, TSH 0.99 Micro: Microbiology 05/19/22 10:17 Nasal Secretion SARS-CoV-2 Antigen (Rapid) - Final Physical Exam Narrative GENERAL: cooperative HEENT: Atraumatic; EYES; Anicteric, Normal Conjunctiva NECK; supple, normal thyroid, RESPIRATORY: Diminished to auscultation CARDIOVASCULAR: Regular S1 S2, GI: soft, normoactive bowel sounds, : No Renal angle tenderness; EXTREMITIES: No edema, no clubbing, MUSCULOSKELETAL: no muscle wasting NEURO: Awake; no lateralizing signs. SKIN: No Rash PSYCH; Flat affect Assessment & Plan Assessment/Plan (1) Insomnia: (2) Adult failure to thrive: (3) Anxiety: PLAN: Patient is a 81-year-old gentleman admitted with insomnia and generalized anxiety 1. Insomnia ? Patient was recently prescribed amitriptyline and hydroxyzine to help with his acute insomnia however appears not to have had any effect. ?10/31/2021 initial diagnostic work-up so far unremarkable. She was started on Klonopin 1 mg p.o. twice daily as well as melatonin at bedtime. Patient appears to have responded to this regimen. 2. BPH ? With history of TURP in August 2016 3. Depression with anxiety disorder ? Patient was on SNRI discontinued prior to his admission 4. Elevated blood pressure ? Patient is not a known hypertensive started on amlodipine 5 mg daily 5. DVT prophylaxis ? SC Lovenox 6. Physical deconditioning - Requested for PT OT eval and clinical social work therapist to assist with discharge planning Charges/Coding Visit Charges OBSV E&M: 36619 Subsequent observation care L2
--- NOTE | 2021-10-31 11:39 | DS.PCM_ITS ---
Providers Date of Admission: 10/30/21 Primary Care Physician: Dr. Denver Baker MD Reason For Visit: INSOMNIA, GENERALIZED ANXIETY Diagnosis Discharge Diagnosis (1) Insomnia: Status: Acute Code(s): G47.00 - Insomnia, unspecified (2) Adult failure to thrive: Status: Acute Code(s): R62.7 - Adult failure to thrive (3) Anxiety: Status: Acute Code(s): F41.9 - Anxiety disorder, unspecified Medications at Discharge Home Medications testosterone 1 packet TD DAILY 08/27/16 ibuprofen 200 mg capsule 200 mg PO TID-QID PRN 12/16/17 melatonin 6 mg PO QHS 10/30/21 saw palmetto 160 mg PO BID 10/30/21 clonazepam 1 mg PO BID #0 tab 10/31/21 Hospital Course Summary of Care Provided Minutes Spent on Discharge: 35 Hospital Course: Patient is a 81-year-old gentleman admitted with insomnia and generalized anxiety 1. Insomnia ? Patient was recently prescribed amitriptyline and hydroxyzine to help with his acute insomnia however appears not to have had any effect. ?10/31/2021 initial diagnostic work-up so far unremarkable. She was started on Klonopin 1 mg p.o. twice daily as well as melatonin at bedtime. Patient appears to have responded to this regimen. -Consult was placed to?mental health team, arrangements were made to transfer patient to an inpatient psych facility 2. BPH ? With history of TURP in August 2016 3. Depression with anxiety disorder ? Patient was on SNRI discontinued prior to his admission 4. Elevated blood pressure ? Patient is not a known hypertensive started on amlodipine 5 mg daily 5. DVT prophylaxis ? SC Lovenox 6. Physical deconditioning - Requested for PT OT eval and social media marketing specialist to assist with discharge planning Physical Exam Narrative GENERAL: cooperative HEENT: Atraumatic; EYES; Anicteric, Normal Conjunctiva NECK; supple, normal thyroid, RESPIRATORY: Diminished to auscultation CARDIOVASCULAR: Regular S1 S2, GI: soft, normoactive bowel sounds, : No Renal angle tenderness; EXTREMITIES: No edema, no clubbing, MUSCULOSKELETAL: no muscle wasting NEURO: Awake; no lateralizing signs. SKIN: No Rash PSYCH; Flat affect Weight / BMI Weight Weight: 94.03 kg Body Mass Index (BMI) 26.6 ABG / Lab / Microbiology Data Result Diagrams: 10/30/21 13:15 10/30/21 13:15 Laboratory: Laboratory Results - last 24 hr 10/30/21 13:15: WBC 7.5, RBC 5.77, Hgb 16.6 H, Hct 49.8, MCV 86.3, MCH 28.8, MCHC 33.3, RDW Std Deviation 39.9, RDW Coeff of Oly 12.9, Plt Count 214, MPV 9.8, Immature Gran % (Auto) 0.400, Neut % (Auto) 76.8 H, Lymph % (Auto) 15.8 L, [place] % (Auto) 6.4, Eos % (Auto) 0.5, Baso % (Auto) 0.1, Absolute Neuts (auto) 5.7, Absolute Lymphs (auto) 1.18, Nucleated RBC % 0 10/30/21 13:15: Sodium 137, Potassium 4.3, Chloride 101, Carbon Dioxide 32.0, Anion Gap 4 L, BUN 19 H, Creatinine 1.09, Estim Creat Clear Calc 63.89, Est GFR (MDRD) Af Amer 84, Est GFR (MDRD) Non-Af 69, BUN/Creatinine Ratio 17.4, Glucose 178 H, Calcium 9.4, Magnesium 2.4, Total Bilirubin 0.90, AST 23, ALT 57, Alkaline Phosphatase 59, Total Protein 7.4, Albumin 3.7, Globulin 3.7, Albumin/Globulin Ratio 1.0, TSH 0.99 Microbiology: Microbiology 10/31/21 10:17 Nasal Secretion SARS-CoV-2 Antigen (Rapid) - Final D/C Instructions Discharge Diet: No restrictions Discharge Activity: Return to Normal Activity Call your doctor if you observe: Fever of 101 or Higher, Shortness of breath, Fainting spells and Chest pain Meaningful Use Info Meaningful Use Diagnoses (Choose all that apply): None applicable Discharge Plan Admission Admit Date/Time: 10/30/21 12:52 Attending Provider: Gamal Marte Primary Care Provider: Denver Baker Discharge Orders/Prescriptions Prescriptions: New clonazepam 1 mg Tablet 1 mg PO BID Qty: 0 RF: 0 Continued ibuprofen 200 mg capsule 200 mg PO TID-QID PRN (Reason: Pain) RF: 0 testosterone 2.5 GM gel in packet 1 packet TD DAILY RF: 0 melatonin 3 mg Tablet 6 mg PO QHS RF: 0 michael palmetto 80 mg Capsule 160 mg PO BID RF: 0 Referrals / Follow Up: Denver Baker MD [Primary Care Provider] - Disposition Disposition (needs filled in before D/C Order can be placed): Psychiatric Hospital or Unit Charges/Coding Visit Charges OBSV E&M: 42489 Observation care discharge
--- NOTE | 2021-10-31 12:15 | CHAPLAIN ---
Type of Pastoral Visit _x__ Initial Visit ___ Follow-up Visit ___ On-call Visit ___ General Patient Visit ___ Spiritual Assessment ___ Family Conference ___ Bereavement ___ Rapid Response ___ Code Blue ___ Other (describe below) Pastoral Care Referral From _x__ Patient _x__ Family ___ Nurse ___ Physician ___ [place] Supervisor ___ [place] Worker ___ Other (describe below) Sacrament/Intervention _x__ Active listening ___ Anointing ___ Scientology ___ Bereavement ___ Communion _x__ Mary Grace exploration ___ _x__ Life review _x__ Prayer ___ Reconciliation ___ Sacrament of Sick _x__ Supportive presence ___ Wedding ___ Other (describe below) Pastoral Comments this patient is an acquaintance of this green chain marker; pt and spouse welcome this green chain marker's presence and support; spouse gives most of the details; pt also expresses self as 'not wanting to be in need of care', 'frustrated', 'tired' due to not sleeping, and 'concerned' about going to another facility for three days; gave calm presence and reassurance of care; provided opportunity for pt to speak and do so with patience as he has a speech impediment; pt welcomes prayer and says just pray that I can sleep; pt expects to be transferred today 'hopefully'
[2021-10-31 12:46] LABS: Color, Urine Yellow (Yellow); Glucose, Dipstick Normal (Normal); Ketone-Dipstick Negative (Negative); Leukocyte Esterase-Dipstick Negative /ul (Negative); Nitrite-Dipstick Negative (Negative); Occult Blood-Urine 10 /ul (Negative); Protein-Dipstick Negative (Negative); Specific Gravity, Urine 1.015 (1.002-1.030); Urine Bilirubin Dipstick Negative (Negative); Urine Clarity Sl. Cloudy (Clear); Urine Urobilinogen Normal (Normal); Urine pH 6.5 (5.0 - 8.0)
--- NOTE | 2021-10-31 12:48 | CM.ED ---
Social Work Note SW received call from Lucina at [facility] requesting update on pt. JOHN informed Lucina that this worker is waiting for results to come back. Lucina states she will call and schedule transport and then call this worker back. Josefina Zavala LUMBER LOADER, CARE TEAM COORDINATOR SCHEDULER
--- NOTE | 2021-10-31 13:17 | CM.ED ---
Social Work Note JOHN received call from Lucina at [facility] stating transportation is arranged for 2:30pm but it may be a little earlier. Accepting physician is Dr. Verma and phone number for RN to RN is [phone]. JOHN attempted to call [facility] to inquire about visitation policy, no answer. JOHN updated pt and pt's on transportation time to [facility]. JOHN encouraged pt's to call [facility] and ask about visitation policy and number provided to pt's . city detective updated. JOHN faxed [place] to [facility]. Plan: [facility] at 2:30pm Josefina FERNÁNDEZ, CHEMICAL PACKAGER
[2021-10-31 13:44] VITALS: BP 134/79; PULSE 96; RESP 18; TEMP 36.4; O2SAT 98
--- NOTE | 2021-10-31 14:17 | NURSING ---
This RN called and gave report to HUNTER Verdugo at [facility].
== END 2021-10-31 13:01 ==
LOC: ED 13:03 → PCU 13:16
PROVIDERS: Admitting Provider Internal Medicine; Emergency Provider Emergency Medicine; PCP Family Medicine; Visit Provider Internal Medicine
DX: R62.7 Adult failure to thrive (principal); F41.1 Generalized anxiety disorder; G47.00 Insomnia, unspecified; Z79.899 Other long term (current) drug therapy; G47.30 Sleep apnea, unspecified; R47.89 Other speech disturbances; N40.0 Benign prostatic hyperplasia without lower urinary tract symptoms; F32.A Depression, unspecified
CPT/HCPCS: 80053; 81002; 83735; 84443; 85025; 87426; 93005; 99218; 99283; 99285; A4216; G0378

== ENCOUNTER → 2022-03-03 | Outpatient (CLI) | payer MEDICARE, SELFPAY ==
[2022-03-03 13:17] LABS: ALB/GLOB Ratio 1.1 RATIO (0.9-2.4); AST(SGOT) 16 U/L (15-37); Alanine Aminotransfer ALT/SGPT 25 U/L (16-61); Albumin, Serum 3.8 g/dL (3.2-5.0); Alkaline Phosphatase 62 U/L (45-117); Anion Gap 7 (5-15); BUN 24 mg/dL (7-18); BUN/Creat Ratio 18.9 RATIO (10-20); Calcium,Total 9.3 mg/dL (8.5-10.1); Chloride 103 mmol/L (98-107); Cholesterol 175 mg/dL (200); Creatinine, Serum 1.27 mg/dL (0.70-1.30); EST Glomerular Filtration Rate 58 mL/min (>60); Est Glom Filt Rate - Afr Amer 70 mL/min (>60); Globulin 3.6 g/dL (2.2-4.2); Glucose 108 mg/dL (74-106); High Density Lipoprotein 38 mg/dL; Potassium 3.9 mmol/L (3.5-5.1); Protein, Total 7.4 g/dL (6.4-8.2); Sodium Level 140 mmol/L (136-145); Triglycerides 115 mg/dL; Very Low Density Lipoprotein 23 mg/dL (5-40)
[2022-03-03 13:28] LABS: Microalbumin,Random Urine 5.4 mg/L (NO RANGE EST.); Microalbumin:Creatinine Ratio 4.4 mg/g CRE (<30 mg/g CRE)
== END | disposition home or self-care (01) ==
PROVIDERS: PCP Family Medicine; Referring Provider Family Medicine; Visit Provider Family Medicine
DX: E11.9 Type 2 diabetes mellitus without complications (principal)
CPT/HCPCS: 36415; 80053; 80061; 82043; 82570

== ENCOUNTER → 2022-04-10 | Outpatient (CLI) | payer MEDICARE, SELFPAY ==
[2022-04-10 12:05] LABS: PSA,Total - Annual Screen 1.35 ng/mL (0.00-4.00)
== END | disposition home or self-care (01) ==
LOC: LAB 10:33
PROVIDERS: PCP Family Medicine; Referring Provider Registered Nurse; Visit Provider Registered Nurse
DX: Z12.5 Encounter for screening for malignant neoplasm of prostate (principal)
CPT/HCPCS: 36415; 84153; 84403; G0103

== ENCOUNTER 2023-04-13 09:52 | Outpatient (CLI) | payer MEDICARE, SELFPAY ==
[2023-04-13 10:49] LABS: Hemoglobin A1c 6.5 % (3.8-5.6)
[2023-04-13 10:54] LABS: PSA,Total - Annual Screen 1.32 ng/mL (0.00-4.00)
== END 2023-04-13 23:59 | disposition home or self-care (01) ==
LOC: LAB 09:55
PROVIDERS: PCP Family Medicine; Referring Provider Nurse Practitioner; Visit Provider Nurse Practitioner
DX: E29.1 Testicular hypofunction (principal); Z13.1 Encounter for screening for diabetes mellitus; Z12.5 Encounter for screening for malignant neoplasm of prostate; Z79.899 Other long term (current) drug therapy
CPT/HCPCS: 36415; 83036; 84153; 84403; G0103

== ENCOUNTER → 2023-12-18 | Outpatient (CLI) | payer MEDICARE, SELFPAY | END | disposition home or self-care (01) | LOC: LAB 09:33 | PROVIDERS: PCP Family Medicine; Referring Provider Family Medicine; Visit Provider Family Medicine | DX: E11.65 Type 2 diabetes mellitus with hyperglycemia (principal) | CPT/HCPCS: 36415; 83036 ==

== ENCOUNTER → 2024-04-08 | Outpatient (CLI) | payer MEDICARE, SELFPAY ==
[2024-04-08 12:27] LABS: Absolute Lymphocyte Count 1.77 X10^3/uL (0.83-4.51); Absolute Neutrophil Count 3.1 X10^3/uL (2.0-7.7); Basophil# 0.02 X10^3/uL; Basophil% 0.4 % (0-1); Eosinophil# 0.22 X10^3/uL; Eosinophils% 3.9 % (0-5); Hematocrit 47.1 % (40-54); Hemoglobin 15.2 g/dL (13.0-16.5); Lymphocyte # 1.77 X10^3/ul (0.83-4.51); Lymphocyte % 31.4 % (19-41); Mean Corp Hgb Conc 32.3 g/dL (32-36); Mean Corpuscular Hgb 27.6 pg (27.0-32.0); Mean Corpuscular Volume 85.6 fL (80-94); Mean Platelet Vol. 10.3 fl (6.2-12.0); Monocyte# 0.51 X10^3/uL; Monocyte% 9.1 % (0-10); NRBC Flagged by Analyzer 0 % (0-5); Neutrophil # 3.09 X10^3/uL (2.7-7.7); Neutrophil % 54.8 % (47-70); Platelet Count 211 K/mm3 (150-450); RBC Distribution Width CV 12.8 % (11.6-14.6); White Blood Count 5.6 K/mm3 (4.4-11.0)
[2024-04-08 13:45] LABS: AST(SGOT) 18 U/L (15-37); Alanine Aminotransfer ALT/SGPT 31 U/L (16-61); Albumin, Serum 3.6 g/dL (3.2-5.0); Alkaline Phosphatase 62 U/L (45-117); Anion Gap 6 (5-15); BUN 26 mg/dL (7-18); BUN/Creat Ratio 24.3 RATIO (10-20); Calcium,Total 9.5 mg/dL (8.5-10.1); Chloride 106 mmol/L (98-107); Cholesterol 163 mg/dL (200); Creatinine, Serum 1.07 mg/dL (0.70-1.30); EST Glomerular Filtration Rate 70 mL/min (>60); Est Glom Filt Rate - Afr Amer 85 mL/min (>60); Globulin 3.6 g/dL (2.2-4.2); Glucose 106 mg/dL (74-106); High Density Lipoprotein 35 mg/dL; Potassium 4.2 mmol/L (3.5-5.1); Protein, Total 7.2 g/dL (6.4-8.2); Sodium Level 140 mmol/L (136-145); Triglycerides 103 mg/dL; Very Low Density Lipoprotein 21 mg/dL (5-40)
[2024-04-08 13:57] LABS: Hemoglobin A1c 6.2 % (3.8-5.6)
== END | disposition home or self-care (01) ==
LOC: MTLAB 09:59
PROVIDERS: PCP Family Medicine; Referring Provider Family Medicine; Visit Provider Family Medicine
DX: I10 Essential (primary) hypertension (principal); E11.65 Type 2 diabetes mellitus with hyperglycemia
CPT/HCPCS: 36415; 80053; 80061; 83036; 85025

== ENCOUNTER → 2024-04-25 | Outpatient (CLI) | payer MEDICARE, SELFPAY ==
--- NOTE | 2024-04-25 08:05 | US_ITS ---
STUDY: ABDOMINAL ULTRASOUND - RIGHT UPPER QUADRANT REASON FOR VISIT: Male, 83 years old Concern for gallbladder pain TECHNIQUE: Ultrasound evaluation of the right upper quadrant was performed with real-time and static tatum-scale imaging. TECHNICAL QUALITY: Adequate. COMPARISON: None. FINDINGS: Liver: The liver measures 17.0 cm. There is increased echogenicity consistent with fatty infiltration. The bile ducts are within normal limits. There is hepatic color flow. The direction of portal flow is hepatopetal. There is no demonstrated mass lesion. Gallbladder: Normal distended gallbladder. The gallbladder wall measures 3 mm. There is a negative sonographic Rene''s sign. There is no pericholecystic fluid. There are multiple echogenic structures within the gallbladder, consistent with multiple gallstones. Common Bile Duct (C.B.D.): The common bile duct measures 4 mm. Pancreas: Normal size of the head, body and tail of the pancreas. There is normal echogenicity of the pancreas. There is no demonstrated pancreatic mass or cyst. Right Kidney: Normal size of the right kidney. The right kidney measures 12.0 cm. Normal renal cortex. The right cortex measures 1.4 cm. There is no demonstrated renal mass or cyst. There is no right hydronephrosis. US/Abdomen Limited IMPRESSION: Cholelithiasis. Fatty infiltration of liver Electronically Signed: Stephen Wang MD at 12:10 EST ,
== END | disposition home or self-care (01) ==
PROVIDERS: PCP Family Medicine; Referring Provider Family Medicine; Visit Provider Family Medicine
DX: R10.11 Right upper quadrant pain (principal)
CPT/HCPCS: 76705

== ENCOUNTER 2024-05-26 11:40 | Observation (INO) | payer MEDICARE, SELFPAY ==
--- NOTE | 2024-05-19 08:34 | EKG12_ITS ---
Test Reason : PRE OP Blood Pressure : */* mmHG Vent. Rate : 60 BPM Atrial Rate : 60 BPM P-R Int : 126 ms QRS Dur : 94 ms QT Int : 400 ms P-R-T Axes : 44 60 113 degrees QTcB Int : 400 ms Normal sinus rhythm ST & T wave abnormality, consider lateral ischemia Abnormal ECG Confirmed by Abhijeet Lechuga ([id number]), manuscript editor CATY FELDMAN ([id number]) on 05/20/2024 6:44:36 AM Referred By: Kofi Benitez Confirmed By: Abhijeet Lechuga
[2024-05-26] VITALS (12 sets, daily range): BP systolic 131–158; BP diastolic 67–97; PULSE 60–94; RESP 16–18; TEMP 35.7–36.9; O2SAT 92–100; BMI 28.5
--- NOTE | 2024-05-26 | GALL_PTH ---
PATIENT: SO GONZALEZ LOC: MS3 U#:[id number] AGE/SX: 83/M ROOM: [facility] [place]/26/[address]: Dr. Kofi Benitez MD : 1940 BED: 1 DIS: 05/28/2024 SPEC #: [id number] RECD: 05/26/24 13:28 STATUS: XOCHITL JOSEPH #: [id number] MUKUND: 05/26/24 00:[address]: Kofi Benitez DEPT: SURGICAL PATHOLOGY RECD BY: Giovany Magana ENTERED: 05/26/24 13:29 SP TYPE: ARNULFO HENRY DR: Elida Carbajal MD Tissues: Gallbladder, NOS Procedures: Surgery Specimen Level III HEADER OPERATION: Robotic laparoscopic cholecystectomy with IOC PRE-OP DIAGNOSIS: Cholelithiasis TISSUE SUBMITTED: Gallbladder MICROSCOPIC DIAGNOSIS Gallbladder, cholecystectomy: Chronic cholecystitis with focal reactive epithelial atypia and cholelithiasis. See comment. EMILY/mr 05/27/2024 COMMENT Case has been reviewed in consultation with Dr. Montanez who concurs with the above diagnosis. IDC:[id number] MICROSCOPIC DESCRIPTION Slides are reviewed. GROSS DESCRIPTION Received is one container labeled with the patient's name and designated gallbladder. The specimen consists of a gallbladder measuring 11.0 cm in length and up to 5.0 cm in diameter. The external surface is pink-hannon, smooth and glistening for the most part. Focally it is granular, hemorrhagic and contains cautery artifact. The gallbladder contains yellow mucoid bile and multiple brownish-black multifaced to irregular stones measuring in aggregate 7.0 x 9.0 x 3.0 cm and 0.1 to 4.5 cm in greatest dimension. The mucosa is bile-stained and without any mass lesions. The gallbladder wall measures up to 0.4 cm in thickness. Health Information Coder sections from the gallbladder and the cystic duct are submitted in one cassette. / YUMIKO: 05/26/2024 TC:3 [facility]: [id number]
--- NOTE | 2024-05-26 07:47 | PRE.ANES_ITS ---
ASA Classification* ASA Classification ASA Classification: 2 Assessment & Plan Anesthesia* Anesthesia Assessment Anesthesia Assessment: Discussed sedation and/or anesthesia options, risks, benefits, and alternatives with patient/parents/legal guardian/POA. Questions invited. The patient/parents/legal guardian/POA seems to understand and agrees to proceed with anesthesia plan. Reviewed the physical assessment, medical history, allergy history and patient home medications list prior to surgery/procedure/anesthetic and documented any changes. Performed airway and anesthesia risk assessments. Anesthesia Type Anesthesia Type: General Anesthesia Focused Assessment* Airway Assessment Mouth opens: >3 cm Mallampati Score: II Focused Labs Anesthesia Preop lab: CBC WBC 5.6 K/mm3 (4.4-11.0) 04/08/24 10:02 RBC 5.50 M/mm3 (4.6-6.2) 04/08/24 10:02 Hgb 15.2 g/dL (13.0-16.5) 04/08/24 10:02 Hct 47.1 % (40-54) 04/08/24 10:02 Plt Count 211 K/mm3 (150-450) 04/08/24 10:02 CHEMISTRY Potassium 4.2 mmol/L (3.5-5.1) 04/08/24 10:02 Sodium 140 mmol/L (136-145) 04/08/24 10:02 Magnesium 2.4 mg/dL (1.6-2.6) 10/30/21 13:15 BUN 26 mg/dL (7-18) H 04/08/24 10:02 Creatinine 1.07 mg/dL (0.70-1.30) 04/08/24 10:02 Glucose 106 mg/dL (74-106) 04/08/24 10:02 TSH 0.99 uIU/mL (0.358-3.74) 10/30/21 13:15 COAG Pre-Assessment Diagnosis/Proposed Procedure Planned Operative Procedure(s): ROBOTIC LAP CHOLEY WITH GRAMS Anesthesia History 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 When Was Last Pacemaker Check QUESTION #4 FULL TEXT: You/Your Family Experience fever (hyperthermia) with Anesthesia Last Oral Intake Last Oral intake: Last Oral Intake NPO since Meds taken in AM with sips of water? Meds patient instructed to take am of surgery PONV PONV - metallographic technician: PONV - metallographic technician Female No 05/17/24 09:21 HX of Motion Sickness No 05/17/24 09:21 HX of N/V After Surgery No 05/17/24 09:21 Non-Smoker Yes 05/17/24 09:21 Duration of Surgery greater No 05/17/24 09:21 than 60 minutes Number of Risk Factors 1 05/17/24 09:21 PONV Score Low Risk 05/17/24 09:21 Height & Weight Height & Weight: Anesthesia: Height & Weight Height 6 ft 2 in 05/09/24 13:49 Respiratory Assessment Respiratory Assessment - metallographic technician: Respiratory Tract Infection Hx - metallographic technician Hx Respiratory Tract Infection No 05/17/24 09:21 STOP Sleep Apnea STOP Sleep Apnea - metallographic technician: STOP Sleep Apnea - metallographic technician Hx Hypertension No 05/17/24 09:21 Hx Sleep Apnea Yes 05/17/24 09:21 CPAP Yes 05/17/24 09:21 BIPAP No 05/17/24 09:21 Do you snore loudly (louder than talking or can be heard Do you often feel tired/ fatigued/ sleepy during daytime? Has anyone observed you stop breathing during sleep? STOP Results Positive 05/17/24 09:21 QUESTION #5 FULL TEXT : Do you snore loudly (louder than talking or can be heard through closed doors)? Tobacco Use History Tobacco Use History - metallographic technician: Tobacco Use History - metallographic technician Tobacco Use Smoking Status Never smoker 05/17/24 09:21 Hx Tobacco Use No 05/17/24 09:21 Years Smoking Packs Smoked per Day Smoking Cessation Date was within the last 15 years Hx Smoking Cessation Date Hx Smoking Cessation Counseling Hematologic Medial History Hematologic Hx - metallographic technician: Hematologic Medical Hx - medical educator Hx of Blood Transfusion No 05/17/24 09:21 Hx of Transfusion in last 3 No 05/17/24 09:21 Months Date of Last Transfusion (if within last 3 months) Ever experience any problems No 05/17/24 09:21 with transfusion(s)? Specify any problems Hx of Preganancy in last 3 N/A 05/17/24 09:21 Months Nurse Filling Out Transfusion DSCHRIBER 05/17/24 09:21 & Questions: Date: 05/17/24 05/17/24 09:21 Time: 05/17/24 09:21 Patient unable to answer at this time (ie. confused, unrespo /Reproduction History /Reproductive History - metallographic technician: /Reproductive Hx- metallographic technician Hx Now No 05/17/24 09:21 Gestational Age (in weeks): EDC: Hx Hx Para Hx Section SAB No 05/17/24 09:21 Active Medications Active Medications: Current Medications Generic Name Dose Route Start Last Admin Trade Name Freq PRN Reason Stop Dose Admin Cefotetan Disodium 2 gm/ 100 mls @ 200 mls/hr 05/26/24 09:15 Sodium Chloride IV 05/26/24 09:44 PREOP ONE Indocyanine Green 3.75 mg/ N/A 1.5 mls @ 999 mls/hr 05/26/24 08:30 IV 05/26/24 08:31 X1 ONE Sodium Chloride 1,000 mls @ 15 mls/hr 05/26/24 07:30 IV 05/31/24 20:49 .Q48H [facility] Protocol PFSH Medical History Wears glasses Fatty liver Dietary restriction Cardiology follow-up encounter History of stress test Speech impediment BPH (benign prostatic hyperplasia) Type 2 diabetes mellitus with hyperglycemia RUQ pain Depression Non-smoker CPAP (continuous positive airway pressure) dependence Hypertension Anxiety Gall stones Diverticulitis Enlarged prostate Low testosterone Sleep apnea Home Medications ?Medication ?Instructions ?Recorded ?Last Taken ?Type ibuprofen 200 mg capsule 200 mg PO TID-QID PRN Pain 12/16/17 Unknown History saw palmetto 80 mg capsule 160 mg PO BID supplement 10/30/21 10/30/21 History glucosamine [id number]-[id number] 1 tab PO QDAY 05/09/24 Unknown History frederic 1,500 mg-400 unit-100 mg tablet (Osteo Bi-Flex (5-Loxin)) melatonin 3 mg tablet 3 mg PO QHS 05/09/24 Unknown History metformin 500 mg tablet 500 mg PO BID 05/09/24 Unknown History mirtazapine 15 mg tablet (Remeron) 7.5 mg PO QHS 05/09/24 Unknown History multivitamin (Daily Multi-Vitamin 1 tab PO QDAY 05/09/24 Unknown History tablet) testosterone 1 pump topical QDAY 05/09/24 Unknown History venlafaxine 75 mg tablet 75 mg PO QDAY 05/09/24 05/26/24 History omega 3 350 mg-dha 235 mg-epa 90 1 cap PO DAILY 05/17/24 Unknown History mg-fish oil 597 mg capsule,delay rel (Micro-3) Allergy/AdvReac Type Severity Reaction Status Date / Time fluoxetine (From Prozac) Allergy Unknown Verified 05/26/24 07:43 paroxetine (From Paxil) Allergy Unknown Verified 05/26/24 07:43 alprazolam (From Xanax) AdvReac Other Verified 05/26/24 07:43 ciprofloxacin (From Cipro) AdvReac Unknown Verified 05/26/24 07:43 citalopram AdvReac Unknown Verified 05/26/24 07:43 levofloxacin (From Levaquin) AdvReac Unknown Verified 05/26/24 07:43 Family History Mother Cancer Hypertension Brother Diabetes Sister Diabetes Surgical History Hx of colonoscopy Hx of right cataract extraction Hx of left cataract extraction Hx of hammer toe correction Hx of transurethral resection of prostate Social History Smoking Status: Never smoker alcohol intake: never substance use type: does not use Review of Systems (Anesthesia) ROS Narrative System reviewed and no additional complaints, except as documented.
[2024-05-26] MEDS: INDOCYANINE GREEN 999 MG IV (07:53)
[2024-05-26] MEDS: 0.9% Normal Saline (1000mL) 1,000 ML 15 ML IV (07:53)
[2024-05-26 08:25] LABS: Bedside Glucose 132 mg/dL (74-106)
--- NOTE | 2024-05-26 08:35 | PCM.HP.BLA ---
History and Physical Date of Admission: 05/26/24 Intake Vital Signs 10/30/2214:16 05/09/2413:49 Height 6 ft 2 in 6 ft 2 in Weight: 225 lb 4 oz BMI 28.9 BP 180/66 H Blood Pressure Location Rt brachial Position Sitting Respiration 18 Pulse 72 Pulse Source Monitor Temp 97.5 F L Temp Source Temporal Pulse Oximetry (%) 100 Oxygen Delivery Method room air Intake Visit Reasons: GALLBLADDER Chief Complaint: Cholelithiasis Records Management Engineer Required: No Accompanied by: Is patient in pain?: No Allergies fluoxetine (From Prozac) Allergy (Verified 05/09/24 13:51) Unknownparoxetine (From Paxil) Allergy (Verified 05/09/24 13:51) Unknownalprazolam (From Xanax) Adverse Reaction (Verified 05/09/24 13:51) Otherciprofloxacin (From Cipro) Adverse Reaction (Verified 05/09/24 13:51) Unknowncitalopram Adverse Reaction (Verified 05/09/24 13:51) Unknownlevofloxacin (From Levaquin) Adverse Reaction (Verified 05/09/24 13:51) Unknown Medications ?Medication ?Instructions ?Recorded ?Confirmed ?Type ibuprofen 200 mg capsule 200 mg PO TID-QID PRN Pain 12/16/17 05/09/24 History saw palmetto 80 mg capsule 160 mg PO BID supplement 10/30/21 05/09/24 History fish oil-dha-epa 1,200 mg-144 cap PO DAILY 05/09/24 05/09/24 History mg-216 mg capsule glucosamine AMj-E7-Abzleywof 1 tab PO QDAY 05/09/24 05/09/24 History frederic 1,500 mg-400 unit-100 mg tablet (Osteo Bi-Flex (5-Loxin)) melatonin 3 mg tablet 3 mg PO QHS 05/09/24 05/09/24 History metformin 500 mg tablet 500 mg PO BID 05/09/24 05/09/24 History mirtazapine 15 mg tablet (Remeron) 7.5 mg PO QHS 05/09/24 05/09/24 History multivitamin (Daily Multi-Vitamin 1 tab PO QDAY 05/09/24 05/09/24 History tablet) testosterone 1 pump topical QDAY 05/09/24 05/09/24 History venlafaxine 75 mg tablet 75 mg PO QDAY 05/09/24 05/09/24 History Have you fallen in the past year?: No PFSH Medical History (Updated 05/09/24 @ 14:[address] Kofi Benitez MD) Speech impediment Anxiety BPH (benign prostatic hyperplasia) Type 2 diabetes mellitus with hyperglycemia RUQ pain Hepatic steatosis Depression Non-smoker CPAP (continuous positive airway pressure) dependence Hypertension Gall stones Diverticulitis Enlarged prostate Low testosterone Sleep apnea Surgical History Hx of transurethral resection of prostate Family History Mother Cancer HypertensionBrother DiabetesSister Diabetes Social History (Updated 05/09/24 @ 13:47 by Aury Granados) Smoking Status: Never smoker alcohol intake: never substance use type: does not use HPI HPI HPI: Patient is an 83-year-old male who comes in with episodes of epigastric pain and cholelithiasis. He reports that he is having these episodes about monthly and when they do occur he is having fevers and chills and nausea and vomiting. ROS General General: No weight change, appetite, fatigue, colon cancer, breast cancer or weakness HEENT HEENT: No difficulty swallowing, eye injury, eye surgery, swollen glands or hoarseness Endo Endocrine: Yes diabetes mellitus; No thyroid disease, thyroid cancer, Hair loss, heat intolerance or cold intolerance Skin Skin: No rash or changing moles Breast Breast: No left breast lump, right breast lump, nipple discharge, breast pain, abnormal mammogram, abnormal US or breast enlargement Musc Musculoskeletal: No back problems, arthritis, rheumatoid arthritis, gout or joint pain Cardio Cardiovascular: Yes high blood pressure; No murmur, pacemaker, heart disease, atrial fibrillation, heart attack, heart stent, palpitations, shortness of breat with exertion or chest pain Psych Psychiatric: No depression, anxiety or hearing voices Resp Respiratory: No shortness of breath, Yes sleep apnea, No cough, No COPD, No asthma, No emphysema and No wheezing Gastro Gastrointestinal: Yes abdominal pain, Yes nausea or vomiting, No diarrhea, No constipation, No blood in stool, No acid reflux, No hemorrhoids, No ulcers, Yes gallbladder problem and No black,tarry stools Bonifacio Hematologic: No blood thinners, No blood disorders, No bleeding, No anemia and No blood clots Neuro Neurologic: No system reviewed and no additional complaints, except as documented, No as per HPI, No abnormal gait, No abnormal hearing, No abnormal movements, No abnormal speech, No behavioral changes, No burning sensations, No confusion, No convulsions, No disequilibrium, No dizziness, No localized weakness, No frequent falls, No headache(s), No lack of coordination, No loss of vision, No memory loss, No numbness, No other visual disturbances, No radicular pain, No restless legs, No sensory deficit, No syncope, No tingling, No tremor(s), No weakness and No other Exam Const General: cooperative Orientation: alert and oriented x3 HENMT Head: normal to inspection Neck Neck: normal visual inspection and full ROM Chest Chest palpation & inspection: normal inspection of the chest Resp Effort & Inspection: normal respiratory effort Auscultation: clear to auscultation bilaterally Cardio Rate: regular rate Rhythm: regular rhythm GI Inspection: non-distended Palpation: soft and nontender Skin General: no rashes or lesions noted Neuro General: patient alert and patient oriented x3 Extrem General: full ROM Psych Appearance: grossly normal Mental Status: mental status grossly normal Assessment and Plan Assessment and Plan (1) Cholelithiasis: Status: Acute Qualifiers: Cholelithiasis location: gallbladder Cholecystitis presence: without cholecystitis Biliary obstruction: without biliary obstruction Qualified Code(s): K80.20 - Calculus of gallbladder without cholecystitis without obstruction Plan: The patient has cholelithiasis on ultrasound and his gallbladder is full of stones. I discussed performing robotic assisted laparoscopic cholecystectomy with cholangiograms. The patient may be having choledocholithiasis intermittently as his bilirubin was elevated at 1.1 during his last lab work. I would like to perform cholecystectomy with cholangiograms to evaluate the common bile duct. I discussed the procedure in detail with the patient. I discussed the risks, benefits, and alternatives of the procedure. I discussed the risks including but not limited to bleeding, infection, injury to surrounding organs such as the liver, bile duct, bowels. I did discuss the possibility of having to convert to an open procedure as well as the possibility that if any injuries occurred this may necessitate further surgery at a tertiary care center. Kofi Benitez MD Pager: [facility] [address] [place] [address], [address] [place] [address] Office: I have examined the patient and the H&P has been reviewed. There are no clinical changes since date of exam.
[2024-05-26] MEDS: Cefotetan 2 GM in 0.9% Normal Saline (100mL MB+) 100 ML IV (09:20)
--- NOTE | 2024-05-26 10:10 | RAD_ITS ---
STUDY: INTRAOPERATIVE CHOLANGIOGRAM. REASON FOR EXAM: Male, 83 years old. LAP BREANA W/ IOC FLUOROSCOPY TIME (if supplied): ( 28 seconds ) minutes/seconds. 14.63 mGy TECHNIQUE: An intraoperative Cholangiogram was performed by the surgeon. Imaging was submitted. COMPARISON: None. FINDINGS: The common bile duct is not dilated. No intraluminal filling defect is seen. There is free flow of contrast into the duodenum. RAD/Cholangiogram/ O R,Initial IMPRESSION: Unremarkable intraoperative cholangiogram. Electronically Signed: Shay Patel MD at 9:56 EST ,
[2024-05-26] MEDS: Bupivacaine Mpf 0.5% 30 ML VIAL (10:18)
--- NOTE | 2024-05-26 11:43 | PCM.OPRPT ---
Operative Report (Standard) Operative Information Date of Procedure: 05/26/24 Pre-Operative Diagnosis: Cholelithiasis Post-Operative Diagnosis: Acute on chronic cholecystitis with choledocholithiasis Surgery/Procedure Performed: Robotic assisted laparoscopic cholecystectomy with cholangiograms oxyacetylene welder: Yes Manager Java: Uli Echeverria Tasks completed by first coat operator: Opening, Closing and Retracting Type of Anesthesia: General/Regional RN Documented Start/Stop Times: Operation Date: 05/27/24 15:30 <No data on this case meets the specified criteria> Procedure Start Time: 08:55 Procedure Stop Time: 10:40 Select all DRAINS/GRAFTS/IMPLANTS that apply: None Estimated Blood Loss: 10 Specimen collected: Yes Description of specimen(s) removed: Gallbladder Description of surgery: Patient was brought back to the operating room and general anesthesia was induced. The abdomen was prepped and draped in usual sterile fashion. A left upper quadrant incision was made and a Veress needle was placed into the abdomen and a drop test was performed. The abdomen was then insufflated to 15 mmHg and the Veress needle was removed. A port was placed in the left upper quadrant. The left upper quadrant was inspected for injuries and there were none. Next a an 8 mm port was placed in the left lower quadrant as well as midline and right upper quadrant. The robot was then docked. The gallbladder was retracted superiorly. There was a a lot of adhesion to omentum. This was taken down using electrocautery and sharp dissection. The colon and duodenum were also adherent to the gallbladder and dissected free. ICG was used to localize the cystic duct. After the cystic duct was encircled and dissected free a clip was placed proximally. A small pranav was made in the cystic duct. It appeared that there was a high amount of back pressure with sludge refluxing back out of the opening. Next through a stab incision and a catheter was placed in the right upper quadrant and then the catheter was placed into the cystic duct and another clip was placed over it. Cholangiograms were performed. It appeared that there was a distal stone that was partially obstructing the common bile duct. The catheter was removed and an additional clip was placed below it. Next the artery was dissected free and clipped doubly and then divided. The area was irrigated and suctioned dry. The gallbladder was then taken off of the gallbladder fossa using Leichter cautery dissection. He was placed into a bag. Next the midline incision had to be extended to get the gallbladder out as it was so large. Next the fascia was closed with [id number] Vicryl sutures. All of the incisions were injected with local anesthetic and then closed with interrupted 4-0 Monocryl sutures. Steri-Strips and bandages were applied. Patient was taken to PACU in stable condition. He will be admitted overnight and GI will perform ERCP tomorrow. Surgical Findings: Choledocholithiasis with a very inflamed gallbladder Complications Complications: No Admit VTE Documentation VTE Mechan Device Prophylaxis: SCD's
[2024-05-26 12:01] LABS: Bedside Glucose 202 mg/dL (74-106)
--- NOTE | 2024-05-26 12:07 | PCM.POST.ANE ---
Anesthesia: Postop Eval I Current Vital Signs Temperature: 97.5 F Pulse Rate: 72 Blood Pressure: 137/75 Respiratory Rate: 16 Pulse Ox: 97 Oxygen Delivery Method: Simple Mask Oxygen Flow Rate (L/min): 6 Assessment Airway patent: Yes Spontaneous unlabored respirations: Yes Mental status: Awake and Calm nausea: No Vomiting: No Anesthesia Complication: No Fluid Hydration Crystalloid volume administer (ml): 1,000 Total IV fluid infused: 1,000 Progress Note Anesthesia document: Postop Eval 1 completed: Yes
--- NOTE | 2024-05-26 12:10 | SUR.PHASEI ---
dr. albert at bedside, planned for ERCP tomorrow
[2024-05-26] MEDS: Ketorolac 15 MG/ML Vial IV (16:24)
[2024-05-26] MEDS: 0.9% Saline Lock 10 ML Syringe IV (16:25)
[2024-05-26] MEDS: Mirtazapine 15 MG Tablet 7.5 MG PO (21:44)
[2024-05-26] MEDS: 0.9% Normal Saline (1000mL) 1,000 ML 100 ML IV (21:44)
--- NOTE | 2024-05-26 23:00 | CON.PCM.GI_ITS ---
HPI Consult Data Date of Consult: 05/27/24 HPI Narrative Reason for Consultation: Choledocholithiasis HPI Narrative: SO GONZALEZ, is a 83-year-old male who presented as an outpatient with episodes of epigastric pain and cholelithiasis. He reports that he is having these episodes about monthly and when they do occur he is having fevers and chills and nausea and vomiting. He underwent successful laparoscopic cholecystectomy yesterday. He had a intraoperative cholangiogram that showed stones in his common bile duct. I was consulted for therapeutic ERCP. [facility] Medical History (Updated 05/27/24 @ 16:[address] Victoria Friend, DO) Choledocholithiasis Wears glasses Fatty liver Dietary restriction Cardiology follow-up encounter History of stress test Speech impediment BPH (benign prostatic hyperplasia) Type 2 diabetes mellitus with hyperglycemia RUQ pain Depression Non-smoker CPAP (continuous positive airway pressure) dependence Hypertension Anxiety Gall stones Diverticulitis Enlarged prostate Low testosterone Sleep apnea Home Medications ?Medication ?Instructions ?Recorded ?Last Taken ?Type ibuprofen 200 mg capsule 200 mg PO TID-QID PRN Pain 12/16/17 Unknown History saw palmetto 80 mg capsule 160 mg PO BID supplement 10/30/21 10/30/21 History glucosamine [id number] 1 tab PO QDAY 05/09/24 Unknown History frederic 1,500 mg-400 unit-100 mg tablet (Osteo Bi-Flex (5-Loxin)) melatonin 3 mg tablet 3 mg PO QHS 05/09/24 Unknown History metformin 500 mg tablet 500 mg PO BID 05/09/24 Unknown History mirtazapine 15 mg tablet (Remeron) 7.5 mg PO QHS 05/09/24 Unknown History multivitamin (Daily Multi-Vitamin 1 tab PO QDAY 05/09/24 Unknown History tablet) testosterone 1 pump topical QDAY 05/09/24 Unknown History venlafaxine 75 mg tablet 75 mg PO QDAY 05/09/24 05/26/24 History omega 3 350 mg-dha 235 mg-epa 90 1 cap PO DAILY 05/17/24 Unknown History mg-fish oil 597 mg capsule,delay rel ([place]-3) Allergy/AdvReac Type Severity Reaction Status Date / Time fluoxetine (From Prozac) Allergy Unknown Verified 05/26/24 07:43 paroxetine (From Paxil) Allergy Unknown Verified 05/26/24 07:43 alprazolam (From Xanax) AdvReac Other Verified 05/26/24 07:43 ciprofloxacin (From Cipro) AdvReac Unknown Verified 05/26/24 07:43 citalopram AdvReac Unknown Verified 05/26/24 07:43 levofloxacin (From Levaquin) AdvReac Unknown Verified 05/26/24 07:43 Family History Mother Cancer Hypertension Brother Diabetes Sister Diabetes Surgical History Hx of colonoscopy Hx of right cataract extraction Hx of left cataract extraction Hx of hammer toe correction Hx of transurethral resection of prostate Social History Smoking Status: Never smoker alcohol intake: never substance use type: does not use ROS Constitutional Constitutional: Denies fatigue, fever(s), poor appetite, weight gain or weight loss Gastrointestinal Gastrointestinal: Denies belching, bloating, change in bowel habits, change in stool character, chewing difficulty, coffee ground emesis, constipation, cramping, diarrhea, dyspepsia, dysphagia, early satiety, excessive flatus, fecal incontinence, heartburn, hematemesis, hematochezia, hemorrhoids, loose stools, melena, nausea, odynophagia, rectal bleeding, tenesmus, vomiting or weight changes Physical Exam Const oriented x3 and no apparent distress Resp normal respiratory effort GI soft to palpation and non-tender Lab / Micro Data 05/27/24 06:15 05/27/24 06:15 Labs: Laboratory Results - last 24 hr 05/27/24 06:15: WBC 11.2 H, RBC 5.04, Hgb 14.2, Hct 42.4, MCV 84.1, MCH 28.2, MCHC 33.5, RDW Std Deviation 40.4, RDW Coeff of [place] 13.2, Plt Count 188, MPV 10.6, Immature Gran % (Auto) 0.700, Neut % (Auto) 81.8 H, Lymph % (Auto) 8.6 L, [place] % (Auto) 8.7, Eos % (Auto) 0.0, Baso % (Auto) 0.2, Absolute Neuts (auto) 9.2 H, Absolute Lymphs (auto) 0.96, Nucleated RBC % 0, Sodium 136, Potassium 4.0, Chloride 103, Carbon Dioxide 28.0, Anion Gap 5, BUN 24 H, Creatinine 1.19, Estim Creat Clear Calc 61.78, Est GFR (MDRD) Af Amer 75, Est GFR (MDRD) Non-Af 62, BUN/Creatinine Ratio 20.2 H, Glucose 223 H, Calcium 8.8, Total Bilirubin 1.50 H, AST 32, ALT 46, Alkaline Phosphatase 54, Total Protein 6.4, Albumin 3.2, Globulin 3.2, Albumin/Globulin Ratio 1.0 05/27/24 06:20: POC Glucose 233 H 05/27/24 08:05: Urine Color Yellow, Urine Clarity Clear, Urine pH 6.0, Ur Specific [place] 1.020, Urine Protein Negative, Urine Glucose (UA) 250 H, Urine Ketones 5 H, Urine Occult Blood Negative, Urine Nitrite Negative, Urine Bilirubin Negative, Urine Urobilinogen Normal, Ur Leukocyte Esterase Negative, Urine RBC 0 SEEN, Urine WBC 0-5 SEEN, Ur Squamous Epith Cells 0-5 SEEN, Urine Bacteria 1+, Urine Mucus 1+ 05/27/24 11:06: POC Glucose 146 H Imaging Radiology Impression Cholangiogram 05/26/24 10:10 IMPRESSION: Unremarkable intraoperative cholangiogram. Electronically Signed: Shay Patel MD at 9:56 EST Reading Location ID and State: [facility] / [place] , Service support , Assessment & Plan Assessment/Plan (1) Choledocholithiasis: PLAN: 83-year-old gentleman comes in with abdominal pain discovered to have cholecystitis. He underwent successful cholecystectomy and had abnormal IntraOp cholangiogram. He will need undergo ERCP. He was explained alternatives, risk and benefits including withstanding bleeding, infection, sepsis, perforation, need for return to . He will have an ASA of 3. Charges/Coding Visit Charges Inpatient E&M: 97384 Init Hosp L3
[2024-05-27] VITALS (13 sets, daily range): BP systolic 125–159; BP diastolic 67–83; PULSE 59–112; RESP 14–18; TEMP 36.3–37.1; O2SAT 91–97; BMI 28.5
[2024-05-27] MEDS: 0.9% Saline Lock 10 ML Syringe IV ×2 (05:34→20:06)
[2024-05-27] MEDS: Ketorolac 15 MG/ML Vial IV ×2 (05:34→20:07)
[2024-05-27 06:41] LABS: Bedside Glucose 233 mg/dL (74-106)
[2024-05-27 07:34] LABS: Absolute Lymphocyte Count 0.96 X10^3/uL (0.83-4.51); Absolute Neutrophil Count 9.2 X10^3/uL (2.0-7.7); Basophil# 0.02 X10^3/uL; Basophil% 0.2 % (0-1); Hematocrit 42.4 % (40-54); Hemoglobin 14.2 g/dL (13.0-16.5); Lymphocyte # 0.96 X10^3/ul (0.83-4.51); Lymphocyte % 8.6 % (19-41); Mean Corp Hgb Conc 33.5 g/dL (32-36); Mean Corpuscular Hgb 28.2 pg (27.0-32.0); Mean Corpuscular Volume 84.1 fL (80-94); Mean Platelet Vol. 10.6 fl (6.2-12.0); Monocyte# 0.97 X10^3/uL; Monocyte% 8.7 % (0-10); NRBC Flagged by Analyzer 0 % (0-5); Neutrophil # 9.15 X10^3/uL (2.7-7.7); Neutrophil % 81.8 % (47-70); Platelet Count 188 K/mm3 (150-450); RBC Distribution Width CV 13.2 % (11.6-14.6); RBC Distribution Width SD 40.4 fl (35.1-43.9); Red Blood Count 5.04 M/mm3 (4.6-6.2); White Blood Count 11.2 K/mm3 (4.4-11.0)
[2024-05-27] MEDS: 0.9% Normal Saline (1000mL) 1,000 ML 100 ML IV (07:51)
[2024-05-27 08:24] LABS: Red Blood Cells-Urine 0 SEEN /hpf (0-5)
[2024-05-27 08:24] LABS: AST(SGOT) 32 U/L (15-37); Alanine Aminotransfer ALT/SGPT 46 U/L (16-61); Albumin, Serum 3.2 g/dL (3.2-5.0); Alkaline Phosphatase 54 U/L (45-117); Anion Gap 5 (5-15); BUN 24 mg/dL (7-18); BUN/Creat Ratio 20.2 RATIO (10-20); Calcium,Total 8.8 mg/dL (8.5-10.1); Chloride 103 mmol/L (98-107); Creatinine, Serum 1.19 mg/dL (0.70-1.30); EST Glomerular Filtration Rate 62 mL/min (>60); Est Glom Filt Rate - Afr Amer 75 mL/min (>60); Estimated Creatinine Clearance 61.78 ml/min; Globulin 3.2 g/dL (2.2-4.2); Glucose 223 mg/dL (74-106); Protein, Total 6.4 g/dL (6.4-8.2); Sodium Level 136 mmol/L (136-145)
[2024-05-27 08:36] LABS: Color, Urine Yellow (Yellow); Glucose, Dipstick 250 mg/dl (Normal); Ketone-Dipstick 5 mg/dl (Negative); Leukocyte Esterase-Dipstick Negative /ul (Negative); Nitrite-Dipstick Negative (Negative); Occult Blood-Urine Negative /ul (Negative); Protein-Dipstick Negative (Negative); Urine Bilirubin Dipstick Negative (Negative); Urine Clarity Clear (Clear); Urine Urobilinogen Normal (Normal)
[2024-05-27 08:50] LABS: Bacteria 1+ /hpf (None Seen); Mucous, Urine 1+ /hpf (<or=2+); Squamous Epithelial Cells - UA 0-5 SEEN /hpf (0-5); White Blood Cells 0-5 SEEN /hpf (0-5)
[2024-05-27] MEDS: Venlafaxine HCl 75 MG Tablet PO (11:11)
[2024-05-27 11:29] LABS: Bedside Glucose 146 mg/dL (74-106)
--- NOTE | 2024-05-27 12:51 | CASEMGMT ---
Met with patient to complete BANERJEE form. BANERJEE form explained to patient who voiced understanding and signed form. Original form placed in pt?s chart and copy provided to patient. Katherin Pena, Discharge Planning Asst
--- NOTE | 2024-05-27 14:36 | PRE.ANES_ITS ---
ASA Classification* ASA Classification ASA Classification: 2 Assessment & Plan Anesthesia* Anesthesia Assessment Anesthesia Assessment: Discussed sedation and/or anesthesia options, risks, benefits, and alternatives with patient/parents/legal guardian/POA. Questions invited. The patient/parents/legal guardian/POA seems to understand and agrees to proceed with anesthesia plan. Reviewed the physical assessment, medical history, allergy history and patient home medications list prior to surgery/procedure/anesthetic and documented any changes. Performed airway and anesthesia risk assessments. Anesthesia Type Anesthesia Type: General Anesthesia Focused Assessment* Temperature: 98.0 F Pulse Rate: 59 Blood Pressure: 141/70 Respiratory Rate: 16 Pulse Ox: 95 Oxygen Flow Rate (L/min): 6 Airway Assessment Mouth opens: >3 cm Mallampati Score: II Focused Labs Anesthesia Preop lab: CBC WBC 11.2 K/mm3 (4.4-11.0) H 05/27/24 06:15 RBC 5.04 M/mm3 (4.6-6.2) 05/27/24 06:15 Hgb 14.2 g/dL (13.0-16.5) 05/27/24 06:15 Hct 42.4 % (40-54) 05/27/24 06:15 Plt Count 188 K/mm3 (150-450) 05/27/24 06:15 CHEMISTRY Potassium 4.0 mmol/L (3.5-5.1) 05/27/24 06:15 Sodium 136 mmol/L (136-145) 05/27/24 06:15 Magnesium 2.4 mg/dL (1.6-2.6) 10/30/21 13:15 BUN 24 mg/dL (7-18) H 05/27/24 06:15 Creatinine 1.19 mg/dL (0.70-1.30) 05/27/24 06:15 Glucose 223 mg/dL (74-106) H 05/27/24 06:15 POC Glucose 146 mg/dL (74-106) H 05/27/24 11:06 TSH 0.99 uIU/mL (0.358-3.74) 10/30/21 13:15 COAG Pre-Assessment Diagnosis/Proposed Procedure Planned Operative Procedure(s): ERCP Anesthesia History 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 When Was Last Pacemaker Check QUESTION #4 FULL TEXT: You/Your Family Experience fever (hyperthermia) with Anesthesia Last Oral Intake Last Oral intake: Last Oral Intake NPO since 00:00 05/27/24 13:37 Meds taken in AM with sips of Yes 05/27/24 13:37 water? Meds patient instructed to see MAR 05/27/24 13:37 take am of surgery PONV PONV - athletic events scorer: PONV - athletic events scorer Female No 05/17/24 09:21 HX of Motion Sickness No 05/17/24 09:21 HX of N/V After Surgery No 05/17/24 09:21 Non-Smoker Yes 05/17/24 09:21 Duration of Surgery greater No 05/17/24 09:21 than 60 minutes Number of Risk Factors 1 05/17/24 09:21 PONV Score Low Risk 05/17/24 09:21 Height & Weight Height & Weight: Anesthesia: Height & Weight Height 6 ft 2 in 05/27/24 13:37 Weight: 101 kg 05/27/24 13:37 Body Mass Index (BMI) 28.5 05/27/24 13:37 Respiratory Assessment Respiratory Assessment - athletic events scorer: Respiratory Tract Infection Hx - athletic events scorer Hx Respiratory Tract Infection No 05/27/24 11:15 STOP Sleep Apnea STOP Sleep Apnea - athletic events scorer: STOP Sleep Apnea - athletic events scorer Hx Hypertension No 05/17/24 09:21 Hx Sleep Apnea Yes 05/17/24 09:21 CPAP Yes 05/17/24 09:21 BIPAP No 05/17/24 09:21 Do you snore loudly (louder than talking or can be heard Do you often feel tired/ fatigued/ sleepy during daytime? Has anyone observed you stop breathing during sleep? STOP Results Positive 05/26/24 11:30 QUESTION #5 FULL TEXT : Do you snore loudly (louder than talking or can be heard through closed doors)? Tobacco Use History Tobacco Use History - athletic events scorer: Tobacco Use History - athletic events scorer Tobacco Use Smoking Status Never smoker 05/17/24 09:21 Hx Tobacco Use No 05/26/24 12:30 Years Smoking Packs Smoked per Day Smoking Cessation Date was within the last 15 years Hx Smoking Cessation Date Hx Smoking Cessation Counseling Hematologic Medial History Hematologic Hx - athletic events scorer: Hematologic Medical Hx - audioprosthologist Hx of Blood Transfusion No 05/17/24 09:21 Hx of Transfusion in last 3 No 05/17/24 09:21 Months Date of Last Transfusion (if within last 3 months) Ever experience any problems No 05/17/24 09:21 with transfusion(s)? Specify any problems Hx of Preganancy in last 3 N/A 05/17/24 09:21 Months Nurse Filling Out Transfusion DSCHRIBER 05/17/24 09:21 & Questions: Date: 05/17/24 05/17/24 09:21 Time: 05/17/24 09:21 Patient unable to answer at this time (ie. confused, unrespo /Reproduction History /Reproductive History - athletic events scorer: /Reproductive Hx- athletic events scorer Hx Now No 05/27/24 11:15 Gestational Age (in weeks): EDC: Hx Hx Para Hx Section SAB No 05/27/24 11:15 Active Medications Active Medications: Current Medications Generic Name Dose Route Start Last Admin Trade Name Freq PRN Reason Stop Dose Admin Acetaminophen 650 mg 05/26/24 11:40 Acetaminophen 325 Mg Tablet PO Q4H PRN PRN Pain 1-10 or Fever Sodium Chloride 1,000 mls @ 15 mls/hr 05/26/24 07:30 05/26/24 23:15 IV 05/31/24 20:49 Infused .Q48H LUIS ANGEL Infusion Protocol Sodium Chloride 100 mls @ 15 mls/hr 05/26/24 12:47 IV .Q6H40M PRN Saline Flush Sodium Chloride 100 mls @ 15 mls/hr 05/26/24 12:47 IV .Q6H40M PRN Additional IVPB Infusion Insulin Human Lispro 0 unit 05/27/24 11:00 05/27/24 11:11 Insulin Lispro 100 Unit/Ml Insuln.Pen SC Not Given [facility] Protocol Ketorolac Tromethamine 15 mg 05/26/24 11:40 05/27/24 05:34 Ketorolac 15 Mg/Ml Vial IV 05/28/24 11:41 15 mg Q8H PRN PRN Administration Pain Score 4-10 Metformin HCl 500 mg 05/26/24 22:00 05/27/24 11:05 Metformin Hcl 500 Mg Tablet PO Not Given BID LUIS ANGEL Mirtazapine 7.5 mg 05/26/24 22:00 05/26/24 21:44 Mirtazapine 15 Mg Tablet PO 7.5 mg QHS LUIS ANGEL Administration Morphine Sulfate 2 - 4 mg 05/26/24 11:40 Morphine 2 Mg/Ml Syringe IV Q2H PRN PRN Pain Score 4-10 Ondansetron HCl 4 mg 05/26/24 11:40 Ondansetron 4 Mg/2 Ml Vial IV Q6H PRN PRN NAUSEA/VOMITING Sodium Chloride 10 - 40 ml 05/26/24 11:40 05/27/24 05:34 0.9% Saline Lock 10 Ml Syringe IV 10 ml UD PRN Administration SALINE FLUSH Sodium Chloride 10 - 40 ml 05/26/24 11:40 0.9% Saline Lock 10 Ml Syringe IV UD PRN SALINE FLUSH Sodium Chloride 10 - 40 ml 05/26/24 12:47 0.9% Saline Lock 10 Ml Syringe IV UD PRN SALINE FLUSH Venlafaxine HCl 75 mg 05/27/24 10:00 05/27/24 11:11 Venlafaxine Hcl 75 Mg Tablet PO 75 mg DAILY LUIS ANGEL Administration [facility] Medical History Wears glasses Fatty liver Dietary restriction Cardiology follow-up encounter History of stress test Speech impediment BPH (benign prostatic hyperplasia) Type 2 diabetes mellitus with hyperglycemia RUQ pain Depression Non-smoker CPAP (continuous positive airway pressure) dependence Hypertension Anxiety Gall stones Diverticulitis Enlarged prostate Low testosterone Sleep apnea Home Medications ?Medication ?Instructions ?Recorded ?Last Taken ?Type ibuprofen 200 mg capsule 200 mg PO TID-QID PRN Pain 12/16/17 Unknown History saw palmetto 80 mg capsule 160 mg PO BID supplement 10/30/21 10/30/21 History glucosamine [id number] 1 tab PO QDAY 05/09/24 Unknown History frederic 1,500 mg-400 unit-100 mg tablet (Osteo Bi-Flex (5-Loxin)) melatonin 3 mg tablet 3 mg PO QHS 05/09/24 Unknown History metformin 500 mg tablet 500 mg PO BID 05/09/24 Unknown History mirtazapine 15 mg tablet (Remeron) 7.5 mg PO QHS 05/09/24 Unknown History multivitamin (Daily Multi-Vitamin 1 tab PO QDAY 05/09/24 Unknown History tablet) testosterone 1 pump topical QDAY 05/09/24 Unknown History venlafaxine 75 mg tablet 75 mg PO QDAY 05/09/24 05/26/24 History omega 3 350 mg-dha 235 mg-epa 90 1 cap PO DAILY 05/17/24 Unknown History mg-fish oil 597 mg capsule,delay rel ([place]-3) Allergy/AdvReac Type Severity Reaction Status Date / Time fluoxetine (From Prozac) Allergy Unknown Verified 05/26/24 07:43 paroxetine (From Paxil) Allergy Unknown Verified 05/26/24 07:43 alprazolam (From Xanax) AdvReac Other Verified 05/26/24 07:43 ciprofloxacin (From Cipro) AdvReac Unknown Verified 05/26/24 07:43 citalopram AdvReac Unknown Verified 05/26/24 07:43 levofloxacin (From Levaquin) AdvReac Unknown Verified 05/26/24 07:43 Family History Mother Cancer Hypertension Brother Diabetes Sister Diabetes Surgical History Hx of colonoscopy Hx of right cataract extraction Hx of left cataract extraction Hx of hammer toe correction Hx of transurethral resection of prostate Social History Smoking Status: Never smoker alcohol intake: never substance use type: does not use Review of Systems (Anesthesia) ROS Narrative System reviewed and no additional complaints, except as documented.
--- NOTE | 2024-05-27 14:51 | CHAPLAIN ---
Type of Pastoral Visit _x__ Initial Visit ___ Follow-up Visit ___ On-call Visit ___ General Patient Visit ___ Spiritual Assessment ___ Family Conference ___ Bereavement ___ Rapid Response ___ Code Blue ___ Other (describe below) Pastoral Care Referral From ___ Patient _x__ Family ___ Nurse ___ Physician ___ Hall Supervisor ___ Drilling Machine Runner ___ Other (describe below) Sacrament/Intervention _x__ Active listening ___ Anointing ___ Synagogue ___ Bereavement ___ Communion ___ Mary Grace exploration ___ _x__ Life review _x__ Prayer ___ Reconciliation ___ Sacrament of Sick ___ Supportive presence ___ Wedding ___ Other (describe below) Pastoral Comments pre surgery prayer and support
--- NOTE | 2024-05-27 15:58 | PCM.PN.SRG ---
Subjective Subjective Patient was not complaining of any pain this morning. He was having burning with urination. Objective Data Objective Data Vital Signs: Vital Signs Temp Pulse Resp BP Pulse Ox O2 Del Method O2 Flow Rate 98.0 F 59 L 16 141/70 H 95 Room Air 6 05/27/24 14:36 05/27/24 14:36 05/27/24 14:36 05/27/24 14:36 05/27/24 14:36 05/27/24 13:37 05/27/24 14:36 Oxygen Flow Rate (L/min) 6 Oxygen Delivery Method Room Air Weight: 222 lb 10.67 oz Body Mass Index (BMI) 28.5 Intake & Output: Intake and Output for Last 24 Hours 05/25/24 05/26/24 05/27/24 23:59 23:59 23:59 Intake Total 2130.5 / 2130.5 1118.33 / 1118.33 Output Total 300 / 300 Balance 2130.5 / 2130.5 818.33 / 818.33 Lab / Micro Data 05/27/24 06:15 05/27/24 06:15 Labs: Laboratory Results - last 24 hr 05/27/24 06:15: WBC 11.2 H, RBC 5.04, Hgb 14.2, Hct 42.4, MCV 84.1, MCH 28.2, MCHC 33.5, RDW Std Deviation 40.4, RDW Coeff of [place] 13.2, Plt Count 188, MPV 10.6, Immature Gran % (Auto) 0.700, Neut % (Auto) 81.8 H, Lymph % (Auto) 8.6 L, [place] % (Auto) 8.7, Eos % (Auto) 0.0, Baso % (Auto) 0.2, Absolute Neuts (auto) 9.2 H, Absolute Lymphs (auto) 0.96, Nucleated RBC % 0, Sodium 136, Potassium 4.0, Chloride 103, Carbon Dioxide 28.0, Anion Gap 5, BUN 24 H, Creatinine 1.19, Estim Creat Clear Calc 61.78, Est GFR (MDRD) Af Amer 75, Est GFR (MDRD) Non-Af 62, BUN/Creatinine Ratio 20.2 H, Glucose 223 H, Calcium 8.8, Total Bilirubin 1.50 H, AST 32, ALT 46, Alkaline Phosphatase 54, Total Protein 6.4, Albumin 3.2, Globulin 3.2, Albumin/Globulin Ratio 1.0 05/27/24 06:20: POC Glucose 233 H 05/27/24 08:05: Urine Color Yellow, Urine Clarity Clear, Urine pH 6.0, Ur Specific [place] 1.020, Urine Protein Negative, Urine Glucose (UA) 250 H, Urine Ketones 5 H, Urine Occult Blood Negative, Urine Nitrite Negative, Urine Bilirubin Negative, Urine Urobilinogen Normal, Ur Leukocyte Esterase Negative, Urine RBC 0 SEEN, Urine WBC 0-5 SEEN, Ur Squamous Epith Cells 0-5 SEEN, Urine Bacteria 1+, Urine Mucus 1+ 05/27/24 11:06: POC Glucose 146 H Radiography Diagnostic Testing: Radiology Impression Cholangiogram 05/26/24 10:10 IMPRESSION: Unremarkable intraoperative cholangiogram. Electronically Signed: Shay Patel MD at 9:56 EST Reading Location ID and State: [facility] / [place] , Service support , Physical Exam Const oriented x3 and no apparent distress Resp normal respiratory effort GI soft to palpation and non-tender Assessment & Plan Assessment/Plan (1) Cholelithiasis: QUALIFIERS: Cholelithiasis location: gallbladder Cholecystitis presence: without cholecystitis Biliary obstruction: without biliary obstruction Qualified Code(s): K80.20 - Calculus of gallbladder without cholecystitis without obstruction PLAN: Patient had cholelithiasis and laparoscopic cholecystectomy yesterday. He had a stone in the distal common bile duct causing partial obstruction and he is having ERCP today. He was feeling burning with urination. UA was normal. Patient also needed a sliding scale for his diabetes. Depending on how the ERCP goes I may let him go home tonight versus tomorrow morning. Kofi Benitez MD Pager: [facility] [address] [place] [address], [address] [place] [address] Office:
--- NOTE | 2024-05-27 16:30 | RAD_ITS ---
EXAM: FL FLUOROSCOPY < 1 HOUR CLINICAL INDICATION: ERCP TECHNIQUE: Fluoroscopic images performed in multiple projections. Fluoroscopic guidance was provided by a physician. Fluoroscopic time is 5.4 seconds. Total dose is 1.58 mGy. COMPARISON: No relevant prior studies available. FINDINGS AND RAD/ERCP Biliary/Pancreas IMPRESSION: ERCP examination. Refer to the procedure note for complete details. Electronically Signed: Marvin Kinney DO at 11:16 EST ,
--- NOTE | 2024-05-27 17:19 | PCM.POST.ANE ---
Anesthesia: Postop Eval I Current Vital Signs Temperature: 97.6 F Pulse Rate: 77 Blood Pressure: 136/76 Respiratory Rate: 16 Pulse Ox: 95 Oxygen Delivery Method: Room Air Assessment Airway patent: Yes Spontaneous unlabored respirations: Yes Mental status: Awake nausea: No Vomiting: No Anesthesia Complication: No Fluid Hydration Crystalloid volume administer (ml): 600 Total IV fluid infused: 600 Progress Note Anesthesia document: Postop Eval 1 completed: Yes
--- NOTE | 2024-05-27 17:24 | OP.ERCP_ITS ---
Patient Name: Chao Karimi Procedure Date: 05/27/2024 4:13 PM Date of : 1940 Age: 83 Procedure: ERCP Indications: Common bile duct stone(s) Providers: Julien Barcenas DO Referring MD: Kofi Benitez MD Medicines: Monitored Anesthesia Care Patient Profile: This is an 83 year old male. Refer to note in patient chart for documentation of history and physical. Patient has symptoms of acute right upper quadrant abdominal pain and acute jaundice. He is status post laparoscopic cholecystectomy recently. Complications: No immediate complications. Procedure: Pre-Anesthesia Assessment: - Prior to the procedure, a History and Physical was performed, and patient medications and allergies were reviewed. The patient is competent. The risks and benefits of the procedure and the sedation options and risks were discussed with the patient. All questions were answered and informed consent was obtained. Patient identification and proposed procedure were verified by the physician in the pre-procedure area. Mental Status Examination: alert and oriented. Airway Examination: normal oropharyngeal airway and neck mobility. Respiratory Examination: clear to auscultation. CV Examination: normal. Prophylactic Antibiotics: The patient does not require prophylactic antibiotics. Prior Anticoagulants: The patient has taken no anticoagulant or antiplatelet agents. ASA Grade Assessment: II - A patient with mild systemic disease. After reviewing the risks and benefits, the patient was deemed in satisfactory condition to undergo the procedure. The anesthesia plan was to use general anesthesia. Immediately prior to administration of medications, the patient was re-assessed for adequacy to receive sedatives. The heart rate, respiratory rate, oxygen saturations, blood pressure, adequacy of pulmonary ventilation, and response to care were monitored throughout the procedure. The physical status of the patient was re-assessed after the procedure. After obtaining informed consent, the scope was passed under direct vision. Throughout the procedure, the patient's blood pressure, pulse, and oxygen saturations were monitored continuously. The Duodenoscope was introduced through the mouth, and advanced to the duodenum and used to inject contrast into the bile duct. The ERCP was accomplished without difficulty. The patient tolerated the procedure well. 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 The esophagus was successfully intubated under direct vision. The scope was advanced to a normal major papilla in the descending duodenum without detailed examination of the pharynx, larynx and associated structures, and upper GI tract. The upper GI tract was grossly normal. A long 0.025 inch Jagwire was passed into the biliary tree. The short-nosed traction sphincterotome was passed over the guidewire and the bile duct was then deeply cannulated. Contrast was injected. I personally interpreted the bile duct images. There was brisk flow of contrast through the ducts. Image quality was adequate. Contrast extended to the entire biliary tree. Opacification of the entire biliary tree except for the cystic duct and gallbladder, entire opacified area, biliary pancreatic junction, lower third of the main bile duct, middle third of the main bile duct, upper third of the main bile duct, main bile duct, common bile duct, common hepatic duct, hepatic duct bifurcation, left and right hepatic ducts and all intrahepatic branches and entire biliary tree was successful. The maximum diameter of the ducts was 10 mm. The lower third of the main bile duct contained a single localized stenosis 6 mm in length. The main bile duct was diffusely dilated, with a stone causing an obstruction. The largest diameter was 10 mm. A 5 mm biliary sphincterotomy was made with a traction (standard) sphincterotome using ERBE electrocautery. There was no post-sphincterotomy bleeding. The biliary tree was swept with a 12 mm balloon starting at the bifurcation. Sludge was swept from the duct. All stones were removed. One 10 Fr by 5 cm temporary stent was placed 5 cm into the common bile duct. Bile flowed through the stent. The stent was in good position. To discover objects, the biliary tree was swept with a 12 mm balloon starting at the biliary pancreatic junction, upper third of the main bile duct, middle third of the main bile duct, lower third of the main duct, bifurcation, left intrahepatic duct(s), left main hepatic duct, right intrahepatic duct(s) and right main hepatic duct. All stones were removed. Impression: - A single localized biliary stricture was found in the lower third of the main bile duct. The stricture was benign appearing. - The entire main bile duct was dilated, with a stone causing an obstruction. - Choledocholithiasis was found. Complete removal was accomplished by biliary sphincterotomy and balloon extraction. - A biliary sphincterotomy was performed. - The biliary tree was swept. - One temporary stent was placed into the common bile duct. Procedure Code(s): --- Professional --- 20606, Endoscopic retrograde cholangiopancreatography (ERCP); with placement of endoscopic stent into biliary or pancreatic duct, including pre- and post-dilation and guide wire passage, when performed, including sphincterotomy, when performed, each stent [id number], Endoscopic retrograde cholangiopancreatography (ERCP); with removal of calculi/debris from biliary/pancreatic duct(s) 53956, 26, Endoscopic catheterization of the biliary ductal system, radiological supervision and interpretation CPT copyright 2021 [employer]. All rights reserved. The codes documented in this report are preliminary and upon loftsman/woman review may be revised to meet current compliance requirements. Julien Barcenas DO 05/27/2024 5:24:05 PM This report has been signed electronically. Number of Addenda: 0 Note Initiated On: 05/27/2024 4:13 PM
--- NOTE | 2024-05-27 17:24 | OP.CCLET_ITS ---
05/27/2024 Elida Carbajal Md Re : ERCP procedure for Chao Bravo Raven This procedure was performed on Monday, May 27, 2024. 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 The stricture was benign appearing. - The entire main bile duct was dilated, with a stone causing an obstruction. - Choledocholithiasis was found. Complete removal was accomplished by biliary sphincterotomy and balloon extraction. - A biliary sphincterotomy was performed. - The biliary tree was swept. - One temporary stent was placed into the common bile duct. Recommendations : My findings are described in the full procedure note, which is enclosed. If I can be of further assistance, please feel free to contact me at . Sincerely, Julien Barcenas, 05/27/2024 5:24:05 PM This report has been signed electronically.
--- NOTE | 2024-05-27 17:25 | PCM.POSTANE2 ---
Anesthesia Postop Eval I Sum Postop Eval Completion status Anesthesia document: Postop Eval 1 completed: Yes Anesthesia Postop Eval I Summary Anesthesia Postop Eval I Summary: Anesthesia Postop Eval I: Assessment Summary Airway patent Yes 05/27/24 17:20 [email or web address] Spontaneous unlabored Yes 05/27/24 17:20 [email or web address] respirations Mental status Awake 05/27/24 17:20 [email or web address] nausea No 05/27/24 17:20 [email or web address] Vomiting No 05/27/24 17:20 [email or web address] Anesthesia Postop Eval I: Fluid Summary Crystalloid volume administer 600 05/27/24 17:20 [email or web address] (ml) Colloids volume administered ( ml) Blood Product volume administered (ml) Total IV fluid infused 600 05/27/24 17:20 [email or web address] Anesthesia Postop Eval I: Summary Notes Anesthesia Complication No 05/27/24 17:20 [email or web address] Anesthesia Complication Comment: Post-operative progress note Anesthesia: Postop Eval II Evaluation Mental status: Awake Pain Level: 0 nausea: No Vomiting: No
--- NOTE | 2024-05-27 17:26 | ANES.CONFIRM ---
Anesthesia: Confirm Documents Multiple Procedures on Account (2) Confirmed Documents: Yes
[2024-05-27 19:59] LABS: Bedside Glucose 142 mg/dL (74-106)
[2024-05-27] MEDS: Acetaminophen 325 MG Tablet 650 MG PO (20:07)
[2024-05-27] MEDS: metFORMIN HCl 500 MG Tablet PO (22:12)
[2024-05-27] MEDS: Mirtazapine 15 MG Tablet 7.5 MG PO (22:12)
[2024-05-27] MEDS: Insulin Lispro 100 UNIT/ML INSULN.PEN SC (22:14)
[2024-05-28 00:42] LABS: Bedside Glucose 297 mg/dL (74-106)
[2024-05-28 02:30] VITALS: BP 138/78; PULSE 78; RESP 18; TEMP 37.1; O2SAT 99
[2024-05-28 05:55] VITALS: BP 146/86; PULSE 65; RESP 16; TEMP 36.6; O2SAT 98
[2024-05-28] MEDS: Insulin Lispro 100 UNIT/ML INSULN.PEN SC (06:01)
[2024-05-28 07:05] LABS: Bedside Glucose 232 mg/dL (74-106)
[2024-05-28] MEDS: Venlafaxine HCl 75 MG Tablet PO (07:50)
[2024-05-28] MEDS: metFORMIN HCl 500 MG Tablet PO (07:50)
--- NOTE | 2024-05-28 07:54 | PCM.DC.SUM ---
Providers Date of Admission: 05/26/24 Primary Care Physician: Elida Carbajal MD Consultations 05/26/24 11:40 Consult: Gastroenterology Routine Consulting Provider: NarinderJulien Reason for Consult: choledocholithiasis EMERGENT Consult: No MD Notified: Yes Date Notified: 05/26/24 Time Notified: 11:42 Method of Notification: Verbal Reason For Visit: Robotic Laparoscopic, Cholecystectomy with IOC Diagnosis Discharge Diagnosis (1) Choledocholithiasis: Status: Acute Code(s): K80.50 - Calculus of bile duct without cholangitis or cholecystitis without obstruction Medications at Discharge Home Medications ibuprofen 200 mg capsule 200 mg PO TID-QID PRN Pain 12/16/17 saw palmetto 80 mg capsule 160 mg PO BID supplement 10/30/21 glucosamine [id number] frederic 1,500 mg-400 unit-100 mg tablet (Osteo Bi-Flex (5-Loxin)) 1 tab PO QDAY 05/09/24 melatonin 3 mg tablet 3 mg PO QHS 05/09/24 metformin 500 mg tablet 500 mg PO BID 05/09/24 mirtazapine 15 mg tablet (Remeron) 7.5 mg PO QHS 05/09/24 multivitamin (Daily Multi-Vitamin tablet) 1 tab PO QDAY 05/09/24 testosterone 1 pump topical QDAY 05/09/24 venlafaxine 75 mg tablet 75 mg PO QDAY 05/09/24 omega 3 350 mg-dha 235 mg-epa 90 mg-fish oil 597 mg capsule,delay rel ([place]-3) 1 cap PO DAILY 05/17/24 Hospital Course Operations cholecystecomy and ERCP Summary of Care Provided Hospital Course: The patient presented for robotic cholecystectomy and was found to have a choledocholithiasis. The patient was admitted and the following day he had ERCP. He tolerated ERCP well and this morning he is doing well and tolerating a diet and his pain is well under control. I will discharge him home today. Physical Exam Const oriented x3 and no apparent distress Resp normal respiratory effort GI soft to palpation Palpation: tender Weight / BMI Weight Weight: 222 lb 10.67 oz Body Mass Index (BMI) 28.5 ABG / Lab / Microbiology Data 05/27/24 06:15 05/27/24 06:15 Laboratory: Laboratory Results - last 24 hr 05/27/24 06:15: Sodium 136, Potassium 4.0, Chloride 103, Carbon Dioxide 28.0, Anion Gap 5, BUN 24 H, Creatinine 1.19, Estim Creat Clear Calc 61.78, Est GFR (MDRD) Af Amer 75, Est GFR (MDRD) Non-Af 62, BUN/Creatinine Ratio 20.2 H, Glucose 223 H, Calcium 8.8, Total Bilirubin 1.50 H, AST 32, ALT 46, Alkaline Phosphatase 54, Total Protein 6.4, Albumin 3.2, Globulin 3.2, Albumin/Globulin Ratio 1.0 05/27/24 08:05: Urine Color Yellow, Urine Clarity Clear, Urine pH 6.0, Ur Specific [place] 1.020, Urine Protein Negative, Urine Glucose (UA) 250 H, Urine Ketones 5 H, Urine Occult Blood Negative, Urine Nitrite Negative, Urine Bilirubin Negative, Urine Urobilinogen Normal, Ur Leukocyte Esterase Negative, Urine RBC 0 SEEN, Urine WBC 0-5 SEEN, Ur Squamous Epith Cells 0-5 SEEN, Urine Bacteria 1+, Urine Mucus 1+ 05/27/24 11:06: POC Glucose 146 H 05/27/24 17:58: POC Glucose 142 H 05/27/24 22:11: POC Glucose 297 H 05/28/24 06:00: POC Glucose 232 H Radiography Diagnostic Testing: Radiology Impression Cholangiogram 05/26/24 10:10 IMPRESSION: Unremarkable intraoperative cholangiogram. Electronically Signed: Shay Patel MD at 9:56 EST Reading Location ID and State: [facility] / [place] , Service support , D/C Instructions Discharge Diet: Light diet - advance as tolerated Discharge Activity: May Not Drive (for 2-3 days or while taking narcotic pain medications.) and - (Do not drive, work heavy equipment or sign legal documents for 24 hours.) May shower in (days): 1 Lifting Restrictions: 20 lbs for 2 weeks Additional Activity Instructions: Pain medication may cause nausea. You should typically eat light foods as you take your pain medications. Pain medication may also cause constipation. If this is a problem for you, please discuss with your doctor. Alternate ibuprofen and Tylenol for pain control. Call your doctor if your incision/area has: Continuous Slow Oozing, Sudden Increased Bleeding, Increased Pain/ Swelling, Increased Redness and Foul Smelling Discharge Call your doctor if you observe: Fever of 101 or Higher Suture Line Care: Avoid Pulling/Pushing and Avoid Pinching/Bending Remove Dressing in: 2 days Additional Dressing/Incision Instructions: Leave operative bandaids on for 2 days. When you remove dressing, leave Steri-Strips on until your follow-up appointment, or until the Steri-Strips fall off on their own. DC O2, CPAP, BIPAP Needs Additional Home O2 Discharge instructions: No DC home with Oxygen: No Please Follow Up With: Kofi Benitez MD When: Please call to schedule 2 week follow up appointment. [phone] Meaningful Use Info Meaningful Use Meaningful Use Diagnoses (Choose all that apply): None applicable Ischemic Stroke Statin Dosing Therapy Reference: STATIN DOSE THERAPY REFERENCE: * Patients > 75 years receive moderate or high dose statin therapy. * Patients 75 years or YOUNGER should receive HIGH intensity statin dose unless contraindicated. You will be required to document reason for non-treatment if statin daily dose does not meet guidelines. HIGH DOSE STATIN THERAPY DAILY Atorvastatin > than or = to 40 mg Rosuvastatin > than or = to 20 mg Amlodipine + Atorvastatin > than or = to 2.5/40 mg Ezetimibe + Simvastatin 10/80 mg Simvastatin 80mg Discharge Plan Admission Admit Date/Time: 05/26/24 11:40 Attending Provider: Kofi Benitez Primary Care Provider: Elida Carbajal Consulting Providers: Julien Barcenas Discharge Orders/Prescriptions Prescriptions: Continued ibuprofen 200 mg capsule 200 mg PO TID-QID PRN (Reason: Pain) venlafaxine 75 mg tablet 75 mg PO QDAY mirtazapine [Remeron] 15 mg tablet 7.5 mg PO QHS metformin 500 mg tablet 500 mg PO BID multivitamin [Daily Multi-Vitamin] Tablet 1 tab PO QDAY [id number] serr [Osteo Bi-Flex (5-Loxin)] 1,500-400-100 mg-unit-mg tablet 1 tab PO QDAY Rx Instructions: give after food/meal testosterone 20.25 mg/1.25 gram (1.62 %) gel in metered-dose pump 1 pump topical QDAY Rx Instructions: apply 1 pump amount over max area of ONE upper arm and shoulder saw palmetto 80 mg Capsule 160 mg PO BID melatonin 3 mg tablet 3 mg PO QHS [place]-3 350 mg-235 mg- 90 mg-597 mg capsule,delayed release(DR/EC) 1 cap PO DAILY Referrals / Follow Up: Elida Carbajal MD [Primary Care Provider] - Disposition Disposition (needs filled in before D/C Order can be placed): Home, Self Care
[2024-05-28 07:59] VITALS: BP 169/90; PULSE 51; RESP 16; TEMP 36.2; O2SAT 96
== END 2024-05-28 08:43 | disposition home or self-care (01) ==
LOC: SDC 11:48 → MS3 11:48
PROVIDERS: Internal Medicine Gastroenterology; Admitting Provider Surgery; PCP Family Medicine; Referring Provider Surgery; Visit Provider Surgery
PROC: 0FT44ZZ Resection of Gallbladder, Percutaneous Endoscopic Approach (ICD-10-PCS; CPT 47562; principal; 2024-05-26 08:55)
PROC: (CPT 43260; principal; 2024-05-27 15:10)
DX: K80.66 Calculus of gallbladder and bile duct with acute and chronic cholecystitis without obstruction (principal); E11.9 Type 2 diabetes mellitus without complications; N40.0 Benign prostatic hyperplasia without lower urinary tract symptoms; Z79.84 Long term (current) use of oral hypoglycemic drugs; I10 Essential (primary) hypertension; Z79.899 Other long term (current) drug therapy; G47.30 Sleep apnea, unspecified; F41.9 Anxiety disorder, unspecified
CPT/HCPCS: 47563; 43264; 00790; 43274; S2900; 74300; 74330; 76000; 80053; 81001; 82962; 85025; 88304; 93005; 96361; 96374; 96376; 99221; A4216; G0378; J2405

== ENCOUNTER 2024-08-22 09:10 | Day surgery (SDC) | payer MEDICARE, SELFPAY ==
--- NOTE | 2024-08-19 10:24 | PAT.ANESEVAL ---
Pre-Assessment Diagnosis/Proposed Procedure Planned Operative Procedure(s): ERCP STENT REMOVAL Anesthesia History Anesthesia History - nozzle tender: Anesthesia History - nozzle tender Hx Hospitalization Yes: [facility] 08/19/24 09:46 Any Problems With Anesthesia No 08/19/24 09:46 Cholinesterase deficiency No 08/19/24 09:46 You/Your Family Experience No 08/19/24 09:46 fever (hyperthermia) with Relationship Recent Exposure to Contagious No 05/30/24 08:51 Disease Does patient have nerve No 08/19/24 09:46 stimulator Patient instructed to have device shut off --Does patient have Pacemaker or ICD? When Was Last Pacemaker Check QUESTION #4 FULL TEXT: You/Your Family Experience fever (hyperthermia) with Anesthesia Last Oral Intake Last Oral intake: Last Oral Intake NPO since Meds taken in AM with sips of water? Meds patient instructed to take am of surgery PONV PONV - nozzle tender: PONV - nozzle tender Female No 08/19/24 09:46 HX of Motion Sickness No 08/19/24 09:46 HX of N/V After Surgery No 08/19/24 09:46 Non-Smoker Yes 08/19/24 09:46 Duration of Surgery greater No 08/19/24 09:46 than 60 minutes Number of Risk Factors 1 08/19/24 09:46 PONV Score Low Risk 08/19/24 09:46 Height & Weight Height & Weight: Anesthesia: Height & Weight Height 6 ft 2 in 05/30/24 08:51 Respiratory Assessment Respiratory Assessment - nozzle tender: Respiratory Tract Infection Hx - nozzle tender Hx Respiratory Tract Infection No 08/19/24 09:46 STOP Sleep Apnea STOP Sleep Apnea - nozzle tender: STOP Sleep Apnea - nozzle tender Hx Hypertension Yes 08/19/24 09:46 Hx Sleep Apnea Yes 08/19/24 09:46 CPAP Yes 08/19/24 09:46 BIPAP No 08/19/24 09:46 Do you snore loudly (louder than talking or can be heard Do you often feel tired/ fatigued/ sleepy during daytime? Has anyone observed you stop breathing during sleep? STOP Results Positive 08/19/24 09:46 QUESTION #5 FULL TEXT : Do you snore loudly (louder than talking or can be heard through closed doors)? 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 Specify any problems Hx of Preganancy in last 3 N/A 08/19/24 09:46 Months Nurse Filling Out Transfusion VLEHMAN 08/19/24 09:46 & Questions: Date: 08/19/24 08/19/24 09:46 Time: 09:51 08/19/24 09:46 Patient unable to answer at this time (ie. confused, unrespo /Reproduction History /Reproductive History - nozzle tender: /Reproductive Hx- nozzle tender Hx Now No 08/19/24 09:46 Gestational Age (in weeks): EDC: Hx Hx Para Hx Section SAB No 08/19/24 09:46 PFSH Medical History Choledocholithiasis Wears glasses Fatty liver Dietary restriction Cardiology follow-up encounter History of stress test Speech impediment BPH (benign prostatic hyperplasia) Type 2 diabetes mellitus with hyperglycemia RUQ pain Depression Non-smoker CPAP (continuous positive airway pressure) dependence Hypertension Anxiety Gall stones Diverticulitis Enlarged prostate Low testosterone Sleep apnea Home Medications ?Medication ?Instructions ?Recorded ?Last Taken ?Type ibuprofen 200 mg capsule 200 mg PO TID-QID PRN Pain 12/16/17 Unknown History saw palmetto 80 mg capsule 160 mg PO BID supplement 10/30/21 10/30/21 History glucosamine [id number] 1 tab PO QDAY 05/09/24 Unknown History frederic 1,500 mg-400 unit-100 mg tablet (Osteo Bi-Flex (5-Loxin)) melatonin 3 mg tablet 3 mg PO QHS 05/09/24 Unknown History metformin 500 mg tablet 500 mg PO BID 05/09/24 Unknown History mirtazapine 15 mg tablet (Remeron) 7.5 mg PO QHS 05/09/24 Unknown History multivitamin (Daily Multi-Vitamin 1 tab PO QDAY 05/09/24 Unknown History tablet) testosterone 1 pump topical QDAY 05/09/24 Unknown History venlafaxine 75 mg tablet 75 mg PO QDAY 05/09/24 05/26/24 History omega 3 350 mg-dha 235 mg-epa 90 1 cap PO DAILY 05/17/24 Unknown History mg-fish oil 597 mg capsule,delay rel ([place]-3) Allergy/AdvReac Type Severity Reaction Status Date / Time fluoxetine (From Prozac) Allergy Unknown Verified 06/09/24 08:15 paroxetine (From Paxil) Allergy Unknown Verified 06/09/24 08:15 alprazolam (From Xanax) AdvReac Other Verified 06/09/24 08:15 ciprofloxacin (From Cipro) AdvReac Unknown Verified 06/09/24 08:15 citalopram AdvReac Unknown Verified 06/09/24 08:15 levofloxacin (From Levaquin) AdvReac Unknown Verified 06/09/24 08:15 Family History Mother Cancer Hypertension Brother Diabetes Sister Diabetes Surgical History S/P laparoscopic cholecystectomy Hx of colonoscopy Hx of right cataract extraction Hx of left cataract extraction Hx of hammer toe correction Hx of transurethral resection of prostate Social History Smoking Status: Never smoker alcohol intake: never substance use type: does not use Audit: Pertinent Findings Pertinent Findings EKG Perinent findings: 05/19/2024. Normal sinus rhythm [address] and T wave abnormality consider lateral ischemia. Recommendation Anesthesia Recommendation Anesthesia recommendation: OPTIMIZED for anesthesia
[2024-08-22] VITALS (9 sets, daily range): BP systolic 110–170; BP diastolic 62–87; PULSE 60–68; RESP 16–18; TEMP 36.6–36.7; O2SAT 92–98; BMI 28.8
--- NOTE | 2024-08-22 09:23 | EKG12_ITS ---
Test Reason : PREOP Blood Pressure : */* mmHG Vent. Rate : 62 BPM Atrial Rate : 62 BPM P-R Int : 172 ms QRS Dur : 100 ms QT Int : 428 ms P-R-T Axes : 60 21 109 degrees QTcB Int : 434 ms Normal sinus rhythm Possible Left atrial enlargement Nonspecific ST and T wave abnormality Abnormal ECG When compared with ECG of 19-May-2024 08:37, T wave inversion less evident in Lateral leads Confirmed by Abhijeet Lechuga ([id number]), state editor CANELO GALDAMEZ ([id number]) on 08/23/2024 1:19:23 PM Referred By: Elida Carbajal Confirmed By: Abhijeet Lechuga
--- NOTE | 2024-08-22 09:38 | PCM.PRE.AN2 ---
ASA Classification* ASA Classification ASA Classification: 2 Assessment & Plan Anesthesia* Anesthesia Assessment Anesthesia Assessment: Discussed sedation and/or anesthesia options, risks, benefits, and alternatives with patient/parents/legal guardian/POA. Questions invited. The patient/parents/legal guardian/POA seems to understand and agrees to proceed with anesthesia plan. Reviewed the physical assessment, medical history, allergy history and patient home medications list prior to surgery/procedure/anesthetic and documented any changes. Performed airway and anesthesia risk assessments. Anesthesia Type Anesthesia Type: MAC (GA bkup) Anesthesia Focused Assessment* Airway Assessment Mouth opens: >3 cm Mallampati Score: II Focused Labs Anesthesia Preop lab: CBC WBC 11.2 K/mm3 (4.4-11.0) H 05/27/24 06:15 05/27/24 RBC 5.04 M/mm3 (4.6-6.2) 05/27/24 06:15 05/27/24 Hgb 14.2 g/dL (13.0-16.5) 05/27/24 06:15 05/27/24 Hct 42.4 % (40-54) 05/27/24 06:15 05/27/24 Plt Count 188 K/mm3 (150-450) 05/27/24 06:15 05/27/24 CHEMISTRY Potassium 4.0 mmol/L (3.5-5.1) 05/27/24 06:15 05/27/24 Sodium 136 mmol/L (136-145) 05/27/24 06:15 05/27/24 Magnesium 2.4 mg/dL (1.6-2.6) 10/30/21 13:15 10/30/21 BUN 24 mg/dL (7-18) H 05/27/24 06:15 05/27/24 Creatinine 1.19 mg/dL (0.70-1.30) 05/27/24 06:15 05/27/24 Glucose 223 mg/dL (74-106) H 05/27/24 06:15 05/27/24 POC Glucose 232 mg/dL (74-106) H 05/28/24 06:00 05/28/24 TSH 0.99 uIU/mL (0.358-3.74) 10/30/21 13:15 10/30/21 COAG Pre-Assessment Diagnosis/Proposed Procedure Planned Operative Procedure(s): ERCP STENT REMOVAL Anesthesia History 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 When Was Last Pacemaker Check QUESTION #4 FULL TEXT: You/Your Family Experience fever (hyperthermia) with Anesthesia Last Oral Intake Last Oral intake: Last Oral Intake NPO since Meds taken in AM with sips of water? Meds patient instructed to take am of surgery PONV PONV - spring manufacturing set up technician: PONV - spring manufacturing set up technician Female No 08/19/24 09:46 HX of Motion Sickness No 08/19/24 09:46 HX of N/V After Surgery No 08/19/24 09:46 Non-Smoker Yes 08/19/24 09:46 Duration of Surgery greater No 08/19/24 09:46 than 60 minutes Number of Risk Factors 1 08/19/24 09:46 PONV Score Low Risk 08/19/24 09:46 Height & Weight Height & Weight: Anesthesia: Height & Weight Height 6 ft 2 in 05/30/24 08:51 Respiratory Assessment Respiratory Assessment - spring manufacturing set up technician: Respiratory Tract Infection Hx - spring manufacturing set up technician Hx Respiratory Tract Infection No 08/19/24 09:46 STOP Sleep Apnea STOP Sleep Apnea - spring manufacturing set up technician: STOP Sleep Apnea - spring manufacturing set up technician Hx Hypertension Yes 08/19/24 09:46 Hx Sleep Apnea Yes 08/19/24 09:46 CPAP Yes 08/19/24 09:46 BIPAP No 08/19/24 09:46 Do you snore loudly (louder than talking or can be heard Do you often feel tired/ fatigued/ sleepy during daytime? Has anyone observed you stop breathing during sleep? STOP Results Positive 08/19/24 09:46 QUESTION #5 FULL TEXT : Do you snore loudly (louder than talking or can be heard through closed doors)? Tobacco Use History Tobacco Use History - spring manufacturing set up technician: Tobacco Use History - spring manufacturing set up technician Tobacco Use Smoking Status Never smoker 08/19/24 09:46 Hx Tobacco Use No 08/19/24 09:46 Years Smoking Packs Smoked per Day Smoking Cessation Date was within the last 15 years Hx Smoking Cessation Date Hx Smoking Cessation Counseling Hematologic Medial History Hematologic Hx - spring manufacturing set up technician: Hematologic Medical Hx - hand bander Hx of Blood Transfusion No 08/19/24 09:46 Hx of Transfusion in last 3 No 08/19/24 09:46 Months Date of Last Transfusion (if within last 3 months) Ever experience any problems No 08/19/24 09:46 with transfusion(s)? Specify any problems Hx of Preganancy in last 3 N/A 08/19/24 09:46 Months Nurse Filling Out Transfusion VLEHMAN 08/19/24 09:46 & Questions: Date: 08/19/24 08/19/24 09:46 Time: 09:51 08/19/24 09:46 Patient unable to answer at this time (ie. confused, unrespo /Reproduction History /Reproductive History - spring manufacturing set up technician: /Reproductive Hx- spring manufacturing set up technician Hx Now No 08/19/24 09:46 Gestational Age (in weeks): EDC: Hx Hx Para Hx Section SAB No 08/19/24 09:46 PFSH Medical History Choledocholithiasis Wears glasses Fatty liver Dietary restriction Cardiology follow-up encounter History of stress test Speech impediment BPH (benign prostatic hyperplasia) Type 2 diabetes mellitus with hyperglycemia RUQ pain Depression Non-smoker CPAP (continuous positive airway pressure) dependence Hypertension Anxiety Gall stones Diverticulitis Enlarged prostate Low testosterone Sleep apnea Home Medications ?Medication ?Instructions ?Recorded ?Last Taken ?Type ibuprofen 200 mg capsule 200 mg PO TID-QID PRN Pain 12/16/17 Unknown History saw palmetto 80 mg capsule 160 mg PO BID supplement 10/30/21 10/30/21 History glucosamine [id number]-M2-Dzexmgoky 1 tab PO QDAY 05/09/24 Unknown History frederic 1,500 mg-400 unit-100 mg tablet (Osteo Bi-Flex (5-Loxin)) melatonin 3 mg tablet 3 mg PO QHS 05/09/24 Unknown History metformin 500 mg tablet 500 mg PO BID 05/09/24 Unknown History mirtazapine 15 mg tablet (Remeron) 7.5 mg PO QHS 05/09/24 Unknown History multivitamin (Daily Multi-Vitamin 1 tab PO QDAY 05/09/24 Unknown History tablet) testosterone 1 pump topical QDAY 05/09/24 Unknown History venlafaxine 75 mg tablet 75 mg PO QDAY 05/09/24 05/26/24 History omega 3 350 mg-dha 235 mg-epa 90 1 cap PO DAILY 05/17/24 Unknown History mg-fish oil 597 mg capsule,delay rel ([place]-3) Allergy/AdvReac Type Severity Reaction Status Date / Time fluoxetine (From Prozac) Allergy Unknown Verified 06/09/24 08:15 paroxetine (From Paxil) Allergy Unknown Verified 06/09/24 08:15 alprazolam (From Xanax) AdvReac Other Verified 06/09/24 08:15 ciprofloxacin (From Cipro) AdvReac Unknown Verified 06/09/24 08:15 citalopram AdvReac Unknown Verified 06/09/24 08:15 levofloxacin (From Levaquin) AdvReac Unknown Verified 06/09/24 08:15 Family History Mother Cancer Hypertension Brother Diabetes Sister Diabetes Surgical History S/P laparoscopic cholecystectomy Hx of colonoscopy Hx of right cataract extraction Hx of left cataract extraction Hx of hammer toe correction Hx of transurethral resection of prostate Social History Smoking Status: Never smoker alcohol intake: never substance use type: does not use Review of Systems (Anesthesia) ROS Narrative System reviewed and no additional complaints, except as documented.
--- NOTE | 2024-08-22 09:45 | RAD_ITS ---
PROCEDURE: ERCP BILIARY/PANCREAS REASON FOR EXAM: Possible choledocholithiasis. TECHNIQUE: Intraoperative fluoroscopic imaging provided for ERCP. COMPARISON: Comparison is made with prior study dated May 27, 2024. FINDINGS: Contrast was injected. The common bile duct is not dilated. A balloon catheter was placed. RAD/ERCP Biliary/Pancreas IMPRESSION: Fluoroscopic imaging provided for ERCP. Reading Location: [facility]--1
--- NOTE | 2024-08-22 09:47 | PCM.HP.STD ---
HPI - General General Date of Admission: 08/22/24 Date of Service: 08/22/24 Chief Complaint: biliary stent removal HPI Narrative SO GONZALEZ, is a 84 M who presents for biliary stent removal. The patient presented for robotic cholecystectomy and was found to have a choledocholithiasis. The patient was admitted and the following day he had ERCP. He tolerated ERCP well and this morning he is doing well and tolerating a diet and his pain is well under control. [facility] Medical History Choledocholithiasis Wears glasses Fatty liver Dietary restriction Cardiology follow-up encounter History of stress test Speech impediment BPH (benign prostatic hyperplasia) Type 2 diabetes mellitus with hyperglycemia RUQ pain Depression Non-smoker CPAP (continuous positive airway pressure) dependence Hypertension Anxiety Gall stones Diverticulitis Enlarged prostate Low testosterone Sleep apnea Home Medications ?Medication ?Instructions ?Recorded ?Last Taken ?Type ibuprofen 200 mg capsule 200 mg PO TID-QID PRN Pain 12/16/17 Unknown History saw palmetto 80 mg capsule 160 mg PO BID supplement 10/30/21 08/21/24 History glucosamine QMm-L8-Bkyzxuiej 1 tab PO QDAY 05/09/24 08/21/24 History frederic 1,500 mg-400 unit-100 mg tablet (Osteo Bi-Flex (5-Loxin)) melatonin 3 mg tablet 3 mg PO QHS 05/09/24 08/21/24 History metformin 500 mg tablet 500 mg PO BID 05/09/24 08/21/24 History mirtazapine 15 mg tablet (Remeron) 7.5 mg PO QHS 05/09/24 08/21/24 History multivitamin (Daily Multi-Vitamin 1 tab PO QDAY 05/09/24 08/21/24 History tablet) testosterone 1 pump topical QDAY 05/09/24 08/21/24 History venlafaxine 75 mg tablet 75 mg PO QDAY 05/09/24 08/21/24 History omega 3 350 mg-dha 235 mg-epa 90 1 cap PO DAILY 05/17/24 08/17/24 History mg-fish oil 597 mg capsule,delay rel ([place]-3) Allergy/AdvReac Type Severity Reaction Status Date / Time fluoxetine (From Prozac) Allergy Unknown Verified 08/22/24 09:42 paroxetine (From Paxil) Allergy Unknown Verified 08/22/24 09:42 alprazolam (From Xanax) AdvReac Other Verified 08/22/24 09:42 ciprofloxacin (From Cipro) AdvReac Unknown Verified 08/22/24 09:42 citalopram AdvReac Unknown Verified 08/22/24 09:42 levofloxacin (From Levaquin) AdvReac Unknown Verified 08/22/24 09:42 Family History Mother Cancer Hypertension Brother Diabetes Sister Diabetes Surgical History S/P laparoscopic cholecystectomy Hx of colonoscopy Hx of right cataract extraction Hx of left cataract extraction Hx of hammer toe correction Hx of transurethral resection of prostate Social History Smoking Status: Never smoker alcohol intake: never substance use type: does not use ROS Constitutional Constitutional: Denies fatigue, fever(s), poor appetite, weight gain or weight loss Gastrointestinal Gastrointestinal: Denies belching, bloating, change in bowel habits, change in stool character, chewing difficulty, coffee ground emesis, constipation, cramping, diarrhea, dyspepsia, dysphagia, early satiety, excessive flatus, fecal incontinence, heartburn, hematemesis, hematochezia, hemorrhoids, loose stools, melena, nausea, odynophagia, rectal bleeding, tenesmus, vomiting or weight changes Physical Exam Const alert, oriented x3, no apparent distress and healthy appearing General Appearance: cooperative GI normal to inspection, nondistended, normoactive bowel sounds, soft to palpation, non-tender and non-distended Percussion: normal to percussion Rectal Exam: deferred Assessment & Plan Assessment/Plan (1) Choledocholithiasis: PLAN: 83-year-old gentleman comes in with abdominal pain discovered to have cholecystitis. He underwent successful cholecystectomy and had abnormal IntraOp cholangiogram. Underwent ERCP with stone removal and stent placement. He will need undergo ERCP with stent removal. He was explained alternatives, risk and benefits including withstanding bleeding, infection, sepsis, perforation, need for return to . He will have an ASA of 3.
[2024-08-22 10:21] LABS: Bedside Glucose 115 mg/dL (74-106)
--- NOTE | 2024-08-22 10:45 | FLU_PTH ---
PATIENT: SO GONZALEZ LOC: EN U#:[id number] AGE/SX: 84/M ROOM: RE08/22/[address]: Dr. Julien Barcenas DO : 1940 BED: DIS: 08/22/2024 SPEC #: [id number] RECD: 08/22/24 11:30 STATUS: XOCHITL OPAL #: [id number] MUKUND: 08/22/24 10:[address]: Julien Barcenas DEPT: CYTOLOGY RECD BY: Sunil Felipe ENTERED: 08/22/24 12:02 SP TYPE: Fluid OTHR DR: Elida Carbajal MD Tissues: Bile duct, NOS Procedures: Special Stain Group II Surgery Specimen Level III Surgery Specimen Level IV Cytospin Fluid HEADER OPERATION: ERCP with stent removal PRE-OP DIAGNOSIS: Choledocholithiasis TISSUE SUBMITTED: Biliary stent for cytology DIAGNOSIS CYTOLOGY Biliary stent, cytology:Nearly acellular specimenFragments of bile JACOBY lee MD, 08/24/2024 CYTOLOGY STUDY Slides are reviewed. CYTOLOGY GROSS Received is 12cm blue stent with 0.2 ml of yellow-thick material labeled with the patient's name and and designated per the requisition as Biliary stent. Submitted for cytology preparation including cell block. Mr 08/22/2024 CPT: 37950,02029, TC: 5
--- NOTE | 2024-08-22 11:23 | PCM.POST.ANE ---
Anesthesia: Postop Eval I Current Vital Signs Temperature: 98 F Pulse Rate: 68 Blood Pressure: 110/62 Respiratory Rate: 18 Pulse Ox: 93 Assessment Airway patent: Yes Spontaneous unlabored respirations: Yes nausea: No Vomiting: No Anesthesia Complication: No Fluid Hydration Crystalloid volume administer (ml): 10 Total IV fluid infused: 10 Progress Note Anesthesia document: Postop Eval 1 completed: Yes
--- NOTE | 2024-08-22 12:09 | POSTOPAN2_ITS ---
Anesthesia Postop Eval I Sum Postop Eval Completion status Anesthesia document: Postop Eval 1 completed: Yes Anesthesia Postop Eval I Summary Anesthesia Postop Eval I Summary: Anesthesia Postop Eval I: Assessment Summary Airway patent Yes 08/22/24 11:23 CELLULOID [email or web address] Spontaneous unlabored Yes 08/22/24 11:23 CELLULOID [email or web address] respirations Mental status nausea No 08/22/24 11:23 CELLULOID [email or web address] Vomiting No 08/22/24 11:23 CELLULOID [email or web address] Anesthesia Postop Eval I: Fluid Summary Crystalloid volume administer 10 08/22/24 11:23 CELLULOID [email or web address] (ml) Colloids volume administered ( ml) Blood Product volume administered (ml) Total IV fluid infused 10 08/22/24 11:23 CELLULOID [email or web address] Anesthesia Postop Eval I: Summary Notes Anesthesia Complication No 08/22/24 11:23 CELLULOID [email or web address] Anesthesia Complication Comment: Post-operative progress note Anesthesia: Postop Eval II Evaluation Mental status: Awake Pain Level: 0 nausea: No Vomiting: No
--- NOTE | 2024-08-22 12:09 | PCM.POSTANE2 ---
Anesthesia Postop Eval I Sum Postop Eval Completion status Anesthesia document: Postop Eval 1 completed: Yes Anesthesia Postop Eval I Summary Anesthesia Postop Eval I Summary: Anesthesia Postop Eval I: Assessment Summary Airway patent Yes 08/22/24 11:23 [email or web address] [email or web address] Spontaneous unlabored Yes 08/22/24 11:23 LEAF [email or web address] respirations Mental status nausea No 08/22/24 11:23 LEAF [email or web address] Vomiting No 08/22/24 11:23 LEAF [email or web address] Anesthesia Postop Eval I: Fluid Summary Crystalloid volume administer 10 08/22/24 11:23 LEAF [email or web address] (ml) Colloids volume administered ( ml) Blood Product volume administered (ml) Total IV fluid infused 10 08/22/24 11:23 LEAF [email or web address] Anesthesia Postop Eval I: Summary Notes Anesthesia Complication No 08/22/24 11:23 LEAF [email or web address] Anesthesia Complication Comment: Post-operative progress note Anesthesia: Postop Eval II Evaluation Mental status: Awake Pain Level: 0 nausea: No Vomiting: No
--- NOTE | 2024-08-22 12:15 | OP.CCLET_ITS ---
08/22/2024 Elida Carbajal Md Re : ERCP procedure for Chao Bravo Raven This procedure was performed on Thursday, August 22, 2024. 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 - Choledocholithiasis was found. Complete removal was accomplished by biliary sphincterotomy and balloon extraction. - A biliary sphincterotomy was performed. - The biliary tree was swept. - One stent was removed from the biliary tree. Recommendations : My findings are described in the full procedure note, which is enclosed. If I can be of further assistance, please feel free to contact me at . Sincerely, Julien Barcenas, 08/22/2024 12:14:39 PM This report has been signed electronically.
--- NOTE | 2024-08-22 12:15 | OP.ERCP_ITS ---
Patient Name: Chao Karimi Procedure Date: 08/22/2024 10:52 AM Date of : 1940 Age: 84 Procedure: ERCP Indications: Bile duct stone(s), Biliary stent removal Providers: Julien Barcenas DO Medicines: Monitored Anesthesia Care Patient Profile: This is an 84 year old male. Refer to note in patient chart for documentation of history and physical. His most recent ERCP for stent and ERCP for stone removal was within the past six months. He is status post laparoscopic cholecystectomy. Complications: No immediate complications. Procedure: Pre-Anesthesia Assessment: - Prior to the procedure, a History and Physical was performed, and patient medications and allergies were reviewed. The patient is competent. The risks and benefits of the procedure and the sedation options and risks were discussed with the patient. All questions were answered and informed consent was obtained. Patient identification and proposed procedure were verified by the physician in the pre-procedure area. Mental Status Examination: alert and oriented. Airway Examination: normal oropharyngeal airway and neck mobility. Respiratory Examination: clear to auscultation. CV Examination: normal. Prophylactic Antibiotics: The patient does not require prophylactic antibiotics. Prior Anticoagulants: The patient has taken no anticoagulant or antiplatelet agents except for NSAID medication. ASA Grade Assessment: II - A patient with mild systemic disease. After reviewing the risks and benefits, the patient was deemed in satisfactory condition to undergo the procedure. The anesthesia plan was to use monitored anesthesia care (MAC). Immediately prior to administration of medications, the patient was re-assessed for adequacy to receive sedatives. The heart rate, respiratory rate, oxygen saturations, blood pressure, adequacy of pulmonary ventilation, and response to care were monitored throughout the procedure. The physical status of the patient was re-assessed after the procedure. After obtaining informed consent, the scope was passed under direct vision. Throughout the procedure, the patient's blood pressure, pulse, and oxygen saturations were monitored continuously. The Duodenoscope was introduced through the mouth, and advanced to the duodenum and used to inject contrast into the bile duct. The ERCP was accomplished without difficulty. The patient tolerated the procedure well. Scope In: 11:06:17 AM Scope Out: 11:14:27 AM Total Procedure Duration Time 0 hours 8 minutes 10 seconds Findings: The service secretary film was normal. The esophagus was successfully intubated under direct vision. The scope was advanced to a normal major papilla in the descending duodenum without detailed examination of the pharynx, larynx and associated structures, and upper GI tract. The upper GI tract was grossly normal. A long 0.025 inch Jagwire was passed into the biliary tree. The short-nosed traction sphincterotome was passed over the guidewire and the bile duct was then deeply cannulated. Contrast was injected. I personally interpreted the bile duct images. There was brisk flow of contrast through the ducts. Image quality was adequate. Contrast extended to the entire biliary tree. Opacification of the entire biliary tree except for the cystic duct and gallbladder, entire biliary tree except for the gallbladder, lower third of the main bile duct, middle third of the main bile duct, upper third of the main bile duct, common bile duct, common hepatic duct, hepatic duct bifurcation, left and right hepatic ducts and all intrahepatic branches, entire biliary tree and right upper quadrant of the abdomen was successful. The maximum diameter of the ducts was 10 mm. The lower third of the main bile duct contained a single localized stenosis 6 mm in length. A 5 mm biliary sphincterotomy was made with a braided traction (standard) sphincterotome using ERBE electrocautery. There was no post-sphincterotomy bleeding. The biliary tree was swept with a 12 mm balloon starting at the upper third of the main bile duct, middle third of the main bile duct, bifurcation, left intrahepatic duct(s), left main hepatic duct, right intrahepatic duct(s) and right main hepatic duct. Sludge was swept from the duct. All stones were removed. One stent was removed from the biliary tree using a snare and sent for cytology. Impression: - A single localized biliary stricture was found in the lower third of the main bile duct. - Choledocholithiasis was found. Complete removal was accomplished by biliary sphincterotomy and balloon extraction. - A biliary sphincterotomy was performed. - The biliary tree was swept. - One stent was removed from the biliary tree. Procedure Code(s): --- Professional --- 74974, Endoscopic retrograde cholangiopancreatography (ERCP); with removal of foreign body(s) or stent(s) from biliary/pancreatic duct(s) 57512, Endoscopic retrograde cholangiopancreatography (ERCP); with removal of calculi/debris from biliary/pancreatic duct(s) 60309, Endoscopic retrograde cholangiopancreatography (ERCP); with sphincterotomy/papillotomy 60575, 26, Endoscopic catheterization of the biliary ductal system, radiological supervision and interpretation CPT copyright 2021 [employer]. All rights reserved. The codes documented in this report are preliminary and upon confectionery laboratory manager review may be revised to meet current compliance requirements. Julien Barcenas DO 08/22/2024 12:14:39 PM This report has been signed electronically. Number of Addenda: 0 Note Initiated On: 08/22/2024 10:52 AM
== END 2024-08-22 12:18 | disposition home or self-care (01) ==
LOC: EN 09:11 → AC 09:13
PROVIDERS: PCP Family Medicine; Referring Provider Family Medicine; Visit Provider Internal Medicine Gastroenterology
PROC: (CPT 43260; principal; 2024-08-22 10:25)
DX: Z46.59 Encounter for fitting and adjustment of other gastrointestinal appliance and device (principal); E11.9 Type 2 diabetes mellitus without complications; K80.51 Calculus of bile duct without cholangitis or cholecystitis with obstruction; I10 Essential (primary) hypertension; Z79.84 Long term (current) use of oral hypoglycemic drugs
CPT/HCPCS: 43262; 43264; 43275; 74330; 76000; 82962; 88108; 88304; 88305; 88313; 93005; A4216; J2405

== ENCOUNTER → 2024-11-08 | Outpatient (CLI) | payer MEDICARE, SELFPAY ==
[2024-11-08 12:50] LABS: PSA,Total - Annual Screen 1.29 ng/mL (0.02-4.00)
== END | disposition home or self-care (01) ==
LOC: LAB 10:52
PROVIDERS: PCP Family Medicine; Referring Provider Nurse Practitioner; Visit Provider Nurse Practitioner
DX: E29.1 Testicular hypofunction (principal); Z12.5 Encounter for screening for malignant neoplasm of prostate
CPT/HCPCS: 36415; 84153; 84403; G0103

== ENCOUNTER 2024-11-18 14:47 | Outpatient (CLI) | payer MEDICARE, SELFPAY ==
[2024-11-18 18:07] LABS: Microalbumin,Random Urine < 12.0 mg/L (NO RANGE EST.); Microalbumin:Creatinine Ratio UNABLE TO CALCULATE mg/g CRE; Protein, Urine (Random) 8.8 mg/dL (0.0-12.0); Protein:Creat Ratio 75 mg/g CRE (0-200)
== END 2024-11-18 23:59 | disposition home or self-care (01) ==
LOC: MTLAB 14:48
PROVIDERS: PCP Family Medicine; Referring Provider Family Medicine; Visit Provider Family Medicine
DX: E11.65 Type 2 diabetes mellitus with hyperglycemia (principal)
CPT/HCPCS: 82043; 82570; 84156

== ENCOUNTER → 2024-12-23 | Outpatient (CLI) | payer MEDICARE, SELFPAY ==
[2024-12-23 11:30] LABS: Anion Gap 7 (5-15); BUN 21 mg/dL (4-19); BUN/Creat Ratio 19.4 RATIO (10-20); Calcium,Total 9.5 mg/dL (7.6-11.0); Carbon Dioxide 29.4 mmol/L (21.0-32.0); Chloride 100 mmol/L (98-108); Glucose 135 mg/dL (70-99); Potassium 4.1 mmol/L (3.3-5.1)
== END | disposition home or self-care (01) ==
LOC: MTLAB 08:44
PROVIDERS: PCP Family Medicine; Referring Provider Family Medicine; Visit Provider Family Medicine
DX: I10 Essential (primary) hypertension (principal)
CPT/HCPCS: 36415; 80048

== ENCOUNTER → 2025-01-02 | Outpatient (CLI) | payer MEDICARE, SELFPAY | END | disposition home or self-care (01) | LOC: MTLAB 10:02 | PROVIDERS: PCP Family Medicine; Referring Provider Family Medicine; Visit Provider Family Medicine | DX: E11.65 Type 2 diabetes mellitus with hyperglycemia (principal) | CPT/HCPCS: 36415; 83036 ==

== ENCOUNTER → 2025-05-03 | Outpatient (CLI) | payer MEDICARE, SELFPAY ==
--- NOTE | 2025-05-03 15:44 | RAD_ITS ---
PROCEDURE: RIBS UNIL 2V NO CXR 05/03/2025 REASON FOR EXAM: RIB PAIN TECHNIQUE: Procedure Code: [id number] Modality: DX Procedure: RIBS UNIL 2V NO CXR COMPARISON: None FINDINGS: Findings: No acute displaced rib fracture, pleural thickening or pneumothorax. 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
== END | disposition home or self-care (01) ==
LOC: MTRAD 15:44
PROVIDERS: PCP Family Medicine
DX: R07.89 Other chest pain (principal); R07.81 Pleurodynia
CPT/HCPCS: 71100